=== PATIENT | female | born 1955 | race Caucasian/White ===

== ENCOUNTER → 2018-03-28 12:52 | Outpatient (CLI) | payer OTHER, SELFPAY ==
--- NOTE | 2018-03-28 | DI.RAD.S_ITS ---
PROCEDURE: FL SHOULDER INJECTION MR/CT LT INDICATIONS: incomplete rotator cuff tear lt shoulder TECHNIQUE: The indications, alternatives, benefits, risks, and complications of the procedure were explained to the patient. Written informed consent was obtained and placed in the chart. The shoulder was examined fluoroscopically and a site for needle placement chosen for entry into the glenohumeral joint from an anterior approach. The skin was prepped and draped in a sterile fashion, and 1% lidocaine infiltrated from skin down to joint capsule. A spinal needle was inserted into the glenohumeral joint, and a small amount of iodinated contrast media injected to confirm intra-articular placement of the needle tip. This was followed by approximately 12 mL dilute solution of a gadolinium containing MR contrast agent. The needle was removed and a dressing was applied. The patient was given postprocedural instructions and sent to the MR suite for MR imaging. FINDINGS: A single fluoroscopic spot image demonstrates intra-articular location of injected iodinated contrast. IMPRESSION: Successful fluoroscopically guided administration of dilute Gadolinium solution into the shoulder joint for MR arthrogram. Dictated by: Shan Kaufman M.D. on 03/28/2018 at 15:06 Approved by: Shan Kaufman M.D. on 03/28/2018 at 15:06
--- NOTE | 2018-03-28 | DI.MRI.S_ITS ---
PROCEDURE: MR SHOULDER LT W CON INDICATIONS: incomplete rotator cuff tear of left shoulder. TECHNIQUE: After the administration of 12 mL of dilute intra-articular Gadolinium contrast, oblique coronal T1 and T2 spin echo with fat saturation, oblique sagittal T1 spin echo with and without fat saturation, oblique sagittal T2 fast spin echo with fat saturation, axial T1 spin echo with fat saturation through the shoulder. COMPARISON: None. FINDINGS: Image quality: Excellent. Rotator cuff: Status post repair of the supraspinatus tendon. There is a roughly 4 mm diameter full thickness tear of the anterior supraspinatus tendon at the humeral insertion site extending to the musculotendinous junction. Low-grade partial-thickness articular surface tear within the mid supraspinatus tendon at the femoral insertion site extending to the muscle tendinous junction is present. 4 mm diameter moderate grade partial-thickness articular surface tear of the posterior supraspinatus tendon at the humeral insertion site extending to the muscular tendinous junction is present. Infraspinatus, subscapularis, and teres minor tendons are intact. No rotator cuff atrophy. Bones and bursae: No bone marrow contusions or fractures. Mild acromioclavicular joint degeneration. The acromion demonstrates conventional anatomy, without an os acromiale. Capsule and soft tissues: The labrum and glenohumeral ligaments appear intact. The long head of the biceps tendon demonstrates normal location and morphology. The rotator interval appears normal, without fibrosis. The coracohumeral ligament is of normal thickness. No intra-articular bodies. IMPRESSION: 1. Postsurgical sequelae. 2. Small full thickness tear of the anterior supraspinatus tendon. Partial-thickness tears of the remainder of the supraspinatus tendon. 3. Acromioclavicular joint osteoarthritis. Dictated by: Darren Stover M.D. on 03/28/2018 at 16:11 Approved by: Darren Stover M.D. on 03/28/2018 at 16:14
== END ==
PROVIDERS: Family Provider Family Medicine; PCP Family Medicine; Visit Provider Orthopaedic Surgery
DX: M75.112 Incomplete rotator cuff tear or rupture of left shoulder, not specified as traumatic (principal); M19.012 Primary osteoarthritis, left shoulder
CPT/HCPCS: 23350; 73222; 77002

== ENCOUNTER → 2018-05-15 09:17 | Outpatient (CLI) | payer OTHER, SELFPAY ==
--- NOTE | 2018-05-15 | DI.MG.S_ITS ---
BILATERAL DIGITAL SCREENING MAMMOGRAM 3D/2D WITH CAD: 05/15/2018 CLINICAL: Routine screening. Comparison is made to exams dated: 09/10/2015 mammogram, 06/26/2014 mammogram, and 07/21/2012 mammogram - [facility]. There are scattered fibroglandular elements in both breasts. Current study was also evaluated with a Computer Aided Detection (CAD) system. No significant masses, calcifications, or other findings are seen in either breast. There has been no significant interval change. IMPRESSION: NEGATIVE There is no mammographic evidence of malignancy. A 1 year screening mammogram is recommended. This exam was interpreted at Station ID: [id number]. NOTE: For mammograms, a report in lay terms will be sent to the patient. Approximately 15% of breast malignancies will not be visualized mammographically. In the management of a palpable breast mass, a negative mammogram must not discourage biopsy of a clinically suspicious lesion. Electronically Signed By: Jhoan hurtado/grisel:05/15/2018 10:06:51 letter sent: Normal Exam ACR BI-RADS Category 1: Negative [id number]
== END ==
PROVIDERS: Family Provider Family Medicine; PCP Family Medicine; Visit Provider Family Medicine
DX: Z12.31 Encounter for screening mammogram for malignant neoplasm of breast (principal)
CPT/HCPCS: 77063; 77067

== ENCOUNTER 2018-06-30 06:38 | Day surgery (SDC) | payer OTHER, SELFPAY ==
[2018-06-30] VITALS (8 sets, daily range): BP systolic 94–126; BP diastolic 50–77; PULSE 53–77; RESP 14–18; TEMP 36.1–37.7; O2SAT 95–100; BMI 29.8
--- NOTE | 2018-06-30 | PATH_ITS ---
[facility] Accession Number: [id number] . 01 Material submitted: . PART A: POLYP, TRANSVERSE COLON AT 40 PART B: POLYP, SIGMOID COLON AT 20 . 02 Diagnosis: A. Transverse Colon Polyp at 40 cm: Tubular adenoma. . B. Sigmoid Colon Polyp at 20 cm: Tubular adenoma. MRV/07/02/2018 . 02 Electronically signed: . Rogelio Devine MD, PhD, Pathologist NPI- [id number] . 01 Gross description: . Part A: POLYP, TRANSVERSE COLON AT 40: Received in formalin are 2 fragment(s) of wei, soft tissue measuring 0.4 x 0.3 x 0.3 cm to 0.3 x 0.2 x 0.2 cm submitted entirely in 1 cassette(s) Part B: POLYP, SIGMOID COLON AT 20: Received in formalin is 1 fragment(s) of wei, soft tissue measuring 0.3 x 0.3 x 0.2 cm submitted entirely in 1 cassette(s) /CKI /CKI . 02 Pathologist provided ICD-10: D12.3, D12.5 . 02 CPT . 057000, 873009 Performed at: 01 [facility] [address], [place], [place] [id number] MD Jhoan Swartz MD Phone: [phone] Performed at: 02 [facility] [address] [place], [place] [id number] MD Salo Hernandez MD Phone: [phone]
[2018-06-30] MEDS: SODIUM CHLORIDE 0.9% 1,000 ML 200 ML IV (07:25)
--- NOTE | 2018-06-30 08:06 | PM.HP.1 ---
History of Present Illness Date Patient Seen: 06/30/18 Time Patient Seen: 08:06 Chief complaint: colonoscopy 28837 Narrative: 63-year-old female with personal history of colon polyps who presents today for surveillance. She has no new gastrointestinal symptoms. Denies any abdominal pain, nausea, vomiting, unexpected weight loss, change in bowel habits, diarrhea, constipation, melena, hematochezia, or bright red blood per rectum. Her last colonoscopy was 5 years ago. Patient History Medical History Depression (Acute) History of colon polyps (Acute) Hyperlipidemia (Acute) Osteoarthritis (Acute) Psoriasis (Acute) Surgical History History of colonoscopy (Acute) Status post rotator cuff repair Family & Social History Family History: Reviewed 06/30/18 by Brody Raman MD Social History: household members spouse Meds Home Medications Medication Instructions Recorded Confirmed Type cholecalciferol (vitamin D3) #0 02/05/18 History glucosamine sulfate-msm 1 ea PO #0 02/05/18 History hydrocortisone valerate 1 cinthya TOPICAL DAILY #0 02/05/18 06/30/18 History multivitamin [Multiple Vitamins] 1 tab PO QDAY #0 02/05/18 History triamcinolone acetonide 1 cinthya TOPICAL BID #15 gm 02/05/18 Rx atorvastatin 40 mg tablet 40 mg PO Q DAY #30 tab 05/06/18 06/30/18 Rx escitalopram 10 mg tablet 10 mg PO QDAY #30 tab 05/06/18 06/30/18 Rx ibuprofen 800 mg tablet 800 mg PO Q8H PRN #90 tab 05/06/18 Rx Allergies Allergy/AdvReac Type Severity Reaction Status Date / Time Sulfa (Sulfonamide Allergy Mild BLISTERS Unverified 06/30/18 07:21 Antibiotics) [SULFA (SULFONAMIDE ANTIBIOTICS)] Review of Systems Review of Systems All systems reviewed & are unremarkable except as noted in HPI and below Exam Vital Signs (past 8 hours): - 06/30/18 07:15 06/30/18 07:18 Temperature 97.0 F L 97.0 F L Pulse Rate 77 77 Respiratory Rate 18 18 Blood Pressure 126/77 H 126/71 H Pulse Oximetry 96 96 Oxygen Delivery Method Room Air Oxygen Flow Rate 0 Narrative Exam Narrative: Well-nourished well-developed female in no acute distress. Alert oriented x3. is at the bedside for the entire visit. Sclera nonicteric Neck is supple Chest clear to auscultation bilaterally Regular rate and rhythm Abdomen soft, nondistended, nontender, no masses Extremities show no clubbing, cyanosis, or edema Objective Labs Labs: No recent radiographic or laboratory studies for review Assessment & Plan Plan: Assessment/Plan Narrative: 63-year-old female with personal history of colon polyps now requiring colorectal surveillance for such. Her last colonoscopy was 5 years ago. I have again recommended colonoscopy for surveillance purposes. Technical details of the procedure were discussed. Risks, benefits, alternatives were explained. Risks including but not limited to sedation, aspiration, bleeding, pain, missed lesion, incomplete examination, need for further radiographic studies, colonic perforation, need for major abdominal surgery, and all attendant risks of major surgery were explained at length. All questions were answered to her satisfaction, and she voiced understanding. Consent was placed on the chart. We will proceed as above.
--- NOTE | 2018-06-30 08:10 | PM.PREOP ---
Pre-operative Note Interval Note Pre-op Check: Yes History & Physical Reviewed by Physician, Yes Exam Performed and Yes History & Physical exam performed today by Physician Changes: No H&P completed within 30 days and has changed as indicated here:: Patient seen and examined today. History physical examination documented and placed on the chart. We will proceed with colonoscopy today as planned for colorectal surveillance given her personal history of colon polyps. ASA Class (for procedural sedation): II
[2018-06-30] MEDS: MIDAZOLAM 5 MG/5 ML VIAL IV (08:30)
[2018-06-30] MEDS: fentaNYL 250 MCG/5 ML INJ IV (08:31)
--- NOTE | 2018-06-30 08:41 | PM.OP.ENDO ---
Operative Date/Time/Diagnoses Date of procedure: 06/30/18 Time of procedure: 08:41 Pre-op diagnosis: Personal history of colon polyps Post-op diagnosis: other (Colon polyps and pandiverticulosis) Procedure & Clinicians Study performed: 1. Sedation per surgeon 2. Colonoscopy with cold forceps polypectomies Same procedure as scheduled: Yes Indications: 63-year-old female with personal history of colon polyps. It has been 5 years since her last endoscopy. Colonoscopy is currently recommended for surveillance purposes. Surgeon: Brody Raman Procedure Notes SCOAP/Timeout: Yes Procedure in detail: After obtaining informed consent, the patient was brought to the GI suite and placed in the left lateral decubitus position on the examination table. After placement of appropriate monitors, the patient was given incremental doses of Versed and Fentanyl until an appropriate level of sedation was achieved. A time out was held per SCOAP protocol. A digital rectal examination was performed and did not reveal any masses or obstructing lesions. The colonoscope was gently passed into the patient's anus and the entire colon navigated to the level of the cecum with minimal difficulty. Once in the cecum, the scope was withdrawn being sure to go before and beyond all mucosal folds and prominences and get an excellent examination. The findings are noted above. At the level of the rectal vault, the scope was retroflexed and the internal anal canal was examined. The scope was straightened and air aspirated from the colon. The instrument was removed from the patient's body and the procedure was concluded. The patient was allowed to awaken from sedation without difficulty and taken to the post-anesthesia care unit in good condition. Scope withdrawal time: 7:56 min Sedation minutes: 22 Findings: diverticulosis and polyp Specimen(s): other Complications: none Recommendations: Colonscopy in 5 years, High fiber diet and Will call with biopsy results Plan for aftercare: 1. Discharge to home 2. Follow-up colonoscopy in 5 years Follow up: as needed Disposition: PACU
--- NOTE | 2018-06-30 08:52 | SUR.PHASEI ---
stable pacu stay, soft belly tolerates fluids.
== END 2018-06-30 09:12 | disposition home or self-care (01) ==
PROVIDERS: Family Provider Family Medicine; PCP Family Medicine; Visit Provider Surgery
PROC: 0DJD8ZZ Inspection of Lower Intestinal Tract, Via Natural or Artificial Opening Endoscopic (ICD-10-PCS; CPT 45378; principal; 2018-06-30 07:45)
DX: Z86.010 Personal history of colon polyps (principal); K57.30 Diverticulosis of large intestine without perforation or abscess without bleeding
CPT/HCPCS: 45380; 99152; J2250; J3010

== ENCOUNTER 2018-07-01 09:00 | Outpatient (RCR) | payer OTHER, SELFPAY ==
--- NOTE | 2018-04-16 07:38 | PT.OIE ---
Current Diagnoses Pain in right hand (04/15/18) Past Surgical History Status post rotator cuff repair Provider Visit Care Team Role Provider Type Elisabeth Araujo MD Attending Provider Physician Family Provider Primary Care Provider Specialty: Family Practice Address: [address] [place] [address], [facility] Email: [email or web address] Physical Therapy Initial Evaluation PT-OP-A Visit Information Start: 04/15/18 15:59 Freq: Status: Active Protocol: Document 04/15/18 16:01 EA (Rec: 04/15/18 16:21 EA [id number]) Out-Patient Physical Therapy Visit Information Visit Information Visit Type Initial Evaluation Visit Start Time 12:15 Visit Stop Time 13:00 Total Visit Minutes 45 Visit Number 1 Evaluation Information Evaluation Date 04/15/18 PT-OP-B Current Condition Start: 04/15/18 15:59 Freq: Status: Active Protocol: Document 04/15/18 16:01 EA (Rec: 04/15/18 16:21 EA [id number]) Current Condition History of Current Condition Onset Date 6 months ago Current Complaints bilateral wrist and hands intermittent aching pain History of Current Condition Present condition started 6 months ago with no known injuries/ hand surgical history; states had trigger finger on left middle finger and thumb and got better after cortisone shots 6 months ago. Patient reports pain usually appears in the morning and decreased/diminished as day goes. 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 No X-rays or imaging taken in the past. Patient reports right shoulder replacement a year ago and shoulder still tight at this time; denies referred/ radiating pain from shoulder to hands Prior Treatments and Tests Right shoulder PT due to replacement 11/2016 Treatment Goals Patient/Caregiver Goals Patient wants to eliminate pain so she could do knitting. Prior Functional Status Baseline Function- ADL's Independent Baseline Function- Mobility Independent Current Functional Impairments (Reported) Functional Limitations- ADL's indep with no limitation except with hand activities that requires gripping and twisting. Functional Limitations- Recreation/ Unable to do usual knitting Hobbies due to pain. PT-OP-C Subjective Start: 04/15/18 15:59 Freq: Status: Active Protocol: Document 04/15/18 16:01 EA (Rec: 04/15/18 16:21 EA [id number]) OP-PT Subjective Patient Comments Patient Comments Present condition started 6 months ago with no known injuries/ hand surgical history; states had trigger finger on left middle finger and thumb and got better after cortisone shots 6 months ago. Patient reports pain usually appears in the morning and decreased/diminished as day goes. 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 No X-rays or imaging taken in the past. Patient reports right shoulder replacement a year ago and shoulder still tight at this time; denies referred/ radiating pain from shoulder to hands Patient Reported Progress Same Patient Questionnaires Quick Dash- Upper Extremity Quick Dash UE Impairment 40 to 59% Impaired (Score 40- 59) OP-PT Pain Assessment Location Bilateral Wrist Pain Location Details Volar wrist joint Intensity 5 Scale Used Numeric (1 - 10) Description Aching Frequency Intermittent Pain Aggravating Factors ADL's Pain Alleviating Factors Heat Medication Home Pain Medication Use Pain Medications Used Yes Home Pain Medication Frequency Ibuprofen PT-OP-E Functional Tests Start: 04/15/18 15:59 Freq: Status: Active Protocol: Document 04/15/18 16:52 EA (Rec: 04/15/18 17:28 EA [id number]) Functional Tests Other 1 Name of Test Hand Dynamometer Score Left =24; R 31 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 and age PT-OP-H Neuro Start: 04/15/18 15:59 Freq: Status: Active Protocol: Document 04/15/18 16:52 EA (Rec: 04/15/18 17:28 EA [id number]) Sensation Evaluation Gross Sensation Gross Sensation WNL Deep Tendon Reflex & Clonus Assessment Deep Tendon Reflex Bilateral Brachioradialis Deep Tendon Reflex 2+ Normal Muscle Tone Tone Assessment Upper Extremity Flexor Tone Description Normal PT-OP-J Posture/Palpation/Skin Start: 04/15/18 15:59 Freq: Status: Active Protocol: Document 04/15/18 16:52 EA (Rec: 04/15/18 17:28 EA [id number]) Posture Evaluation Position Sitting Head/C-Spine Posture Forward Head Palpation Assessment Location Two Palpation Location volar wrist joint Palpation Findings Tenderness One Palpation Location Hand extensors Palpation Findings Soft Tissue Tightness Tenderness Skin Assessment Edema Assessment Bilateral Hand Comments No skin discoloration or acute signs of inflammation PT-OP-K Range of Motion Start: 04/15/18 15:59 Freq: Status: Active Protocol: Document 04/15/18 16:52 EA (Rec: 04/15/18 17:28 EA [id number]) Shoulder Goniometric Range of Motion Shoulder Measured in Degrees Active Testing Position Sitting Flexion 90 Abduction 75 External Rotation at 0 degrees Abduction 35 Internal Rotation 45 Wrist Goniometric Range of Motion Wrist Measured in Degrees Right Flexion Active (degrees) 80 Extension Active (degrees) 70 Ulnar Deviation Active (degrees) 30 Radial Deviation Active (degrees) 40 Left Flexion Active (degrees) 70 Extension Active (degrees) 65 Ulnar Deviation Passive (degrees) 25 Radial Deviation Active (degrees) 30 ROM Limitations Wrist Limitations of Range of Motion Soft Tissue Tightness Thumb Goniometric Range of Motion Thumb Measured in Degrees Left Thumb ROM WFL Yes PT-OP-L Special Tests Start: 04/16/18 07:23 Freq: Status: Active Protocol: Document 04/15/18 14:52 EA (Rec: 04/16/18 07:26 EA [id number]) Special Tests Cervical Spine Special Tests Spurling's Test Test Results negative Foraminal Compression Test Results negative Other Special Tests Special Tests Phalens test-reversed phalens test: negative Finkelstien's test: Negative to both. PT-OP-M Strength Start: 04/15/18 15:59 Freq: Status: Active Protocol: Document 04/15/18 17:29 EA (Rec: 04/15/18 17:31 EA [id number]) Shoulder Strength Shoulder Manual Muscle Testing Left Flexion 4- Good- Extension 4+ Good+ Abduction (C5) 4- Good- Adduction 4+ Good+ External Rotation 4- Good- Internal Rotation 4- Good- Hand Junior Systems Administrator/Pinch Strength Hand Dominance Hand Dominance Right Hand Strength Right Junior Systems Administrator (lbs) 68.2 Left Junior Systems Administrator (lbs) 52.8 Wrist Strength Wrist Manual Muscle Testing Right Flexion (C7) 5 Normal Extension (C6) 5 Normal Ulnar Deviation 5 Normal Radial Deviation 5 Normal Left Flexion (C7) 4+ Good+ Extension (C6) 4+ Good+ Ulnar Deviation 4+ Good+ Radial Deviation 4+ Good+ PT-OP-Q Treatments Start: 04/15/18 15:59 Freq: Status: Active Protocol: Document 04/15/18 16:52 EA (Rec: 04/15/18 17:28 EA [id number]) Self-Care/Home Management Treatment Education Patient Education Home Exercise Program Joint Protection Pain Management PT-OP-R Modalities Start: 04/15/18 15:59 Freq: Status: Active Protocol: Document 04/15/18 16:52 EA (Rec: 04/15/18 17:28 EA [id number]) Paraffin Bath Treatment Right Hand Treatment Technique Glove Number Wax Layers (layers) 6 Duration (minutes) 15 Patient Tolerance Good Left Hand Treatment Technique Glove Number Wax Layers (layers) 6 Duration (minutes) 15 Patient Tolerance Good PT-OP-T Assessment and Plan Start: 04/15/18 15:59 Freq: Status: Active Protocol: Document 04/15/18 16:52 EA (Rec: 04/15/18 17:28 EA [id number]) Physical Therapy Assessment Rehab Potential Rehabilitation Potential Excellent Evaluation Complexity Number of Personal Factors/Comorbidities 1-2 Number of Body Systems Impaired 3 Clinical Presentation at Evaluation Stable Impairments Impairments Functional Activities Pain ROM Soft Tissue Mobility Goals Three Impairment Wrist Flexion 0-70; EXT 0- 65 deg Senior Living Goal (LTG) Patient will exhibit normal wrist flexion and extension ROM LTG Duration 4 wks Two Impairment Quick Dash score of 40 Manager Assembly Goal (LTG) Patient will have quickDash score of < 25 LTG Duration 4 wks One Impairment PS of 5/10 with activity Manager Assembly Goal (LTG) Patient will report pain w/ PS of 2 /10 with activity LTG Duration 4 wks Assessment Summary Assessment Patient exhibits signs and symptoms consistent with mild multiple hand joints osteoarthritis. Patient's condition history collaborate with patient's disease progression. No noted any signs of neurogenic involvement. Patient would benefit with skilled PT to focus in decreasing symptoms and maintaining/improving left hand strength. Physical Therapy Plan Frequency and Duration Frequency of Treatment 1x/Week Plan of Care Start Date 04/15/18 Plan of Care End Date 05/27/18 Therapeutic Interventions Therapeutic Interventions Home Exercise Program Joint Mobilizations Manual Therapy Patient/Caregiver Education Self-Care/Home Management Soft Tissue Mobilization Therapeutic Exercises Modalities Cold Pack/Ice Massage Electric Stimulation Hot Packs Paraffin Bath Ultrasound Next Visit Focus/Plan Next Note Type Treatment Note Next Visit Plan Paraffin, flexibility, STM, and HEP. Please Sign and Return: I have reviewed this Plan of Care and certify that the skilled therapy services above are required to meet the patient?s needs. Physician Signature Date Printed Name and Credentials Clinical Instructor Signature Printed Name and Credentials
--- NOTE | 2018-04-16 07:38 | PT.OPPOC ---
Current Diagnoses Pain in right hand (04/15/18) Provider Visit Care Team Role Provider Type Elisabeth Araujo MD Attending Provider Physician Family Provider Primary Care Provider Specialty: Family Practice Address: [address] [place] [address], [facility] Email: [email or web address] Plan Of Care PT-OP-T Assessment and Plan Start: 04/15/18 15:59 Freq: Status: Active Protocol: Document 04/15/18 16:52 EA (Rec: 04/15/18 17:28 EA [id number]) Physical Therapy Assessment Rehab Potential Rehabilitation Potential Excellent Evaluation Complexity Number of Personal Factors/Comorbidities 1-2 Number of Body Systems Impaired 3 Clinical Presentation at Evaluation Stable Impairments Impairments Functional Activities Pain ROM Soft Tissue Mobility Goals Three Impairment Wrist Flexion 0-70; EXT 0- 65 deg Fpc Goal (LTG) Patient will exhibit normal wrist flexion and extension ROM LTG Duration 4 wks Two Impairment Quick Dash score of 40 Fpc Goal (LTG) Patient will have quickDash score of < 25 LTG Duration 4 wks One Impairment PS of 5/10 with activity Fpc Goal (LTG) Patient will report pain w/ PS of 2 /10 with ac tivity LTG Duration 4 wks Assessment Summary Assessment Patient exhibits signs and symptoms consistent with mild multiple hand joints osteoarthritis. Patient's condition history collaborate with patient's disease progression. No noted any signs of neurogenic involvement. Patient would benefit with skilled PT to focus in decreasing symptoms and maintaining/improving left hand strength. Physical Therapy Plan Frequency and Duration Frequency of Treatment 1x/Week Plan of Care Start Date 04/15/18 Plan of Care End Date 05/27/18 Therapeutic Interventions Therapeutic Interventions Home Exercise Program Joint Mobilizations Manual Therapy Patient/Caregiver Education Self-Care/Home Management Soft Tissue Mobilization Therapeutic Exercises Modalities Cold Pack/Ice Massage Electric Stimulation Hot Packs Paraffin Bath Ultrasound Next Visit Focus/Plan Next Note Type Treatment Note Next Visit Plan Paraffin, flexibility, STM, and HEP. Plan of Care Dates Plan of Care Start Date 04/15/18 Plan of Care End Date 05/27/18 Please Sign and Return: I have reviewed this Plan of Care and certify that the skilled therapy services above are required to meet the patient?s needs. Physician Signature Date Printed Name and Credentials Clinical Instructor Signature Printed Name and Credentials
--- NOTE | 2018-04-17 07:27 | PT.OPPOC ---
Current Diagnoses Pain in right hand (04/15/18) Provider Visit Care Team Role Provider Type Elisabeth Araujo MD Attending Provider Physician Family Provider Primary Care Provider Specialty: Family Practice Address: [address] [place] [address], [facility] Email: [email or web address] Plan Of Care PT-OP-T Assessment and Plan Start: 04/15/18 15:59 Freq: Status: Active Protocol: Document 04/15/18 16:52 EA (Rec: 04/15/18 17:28 EA [id number]) Physical Therapy Assessment Rehab Potential Rehabilitation Potential Excellent Evaluation Complexity Number of Personal Factors/Comorbidities 1-2 Number of Body Systems Impaired 3 Clinical Presentation at Evaluation Stable Impairments Impairments Functional Activities Pain ROM Soft Tissue Mobility Goals Three Impairment Wrist Flexion 0-70; EXT 0- 65 deg Intermediate Goal (LTG) Patient will exhibit normal wrist flexion and extension ROM LTG Duration 4 wks Two Impairment Quick Dash score of 40 Intermediate Goal (LTG) Patient will have quickDash score of < 25 LTG Duration 4 wks One Impairment PS of 5/10 with activity Intermediate Goal (LTG) Patient will report pain w/ PS of 2 /10 with ac tivity LTG Duration 4 wks Assessment Summary Assessment Patient exhibits signs and symptoms consistent with mild multiple hand joints osteoarthritis. Patient's condition history coincide with patient's disease progression. No noted any signs of neurogenic involvement. Patient would benefit with skilled PT to focus in decreasing symptoms and maintaining/improving left hand strength. Physical Therapy Plan Frequency and Duration Frequency of Treatment 1x/Week Plan of Care Start Date 04/15/18 Plan of Care End Date 05/27/18 Therapeutic Interventions Therapeutic Interventions Home Exercise Program Joint Mobilizations Manual Therapy Patient/Caregiver Education Self-Care/Home Management Soft Tissue Mobilization Therapeutic Exercises Modalities Cold Pack/Ice Massage Electric Stimulation Hot Packs Paraffin Bath Ultrasound Next Visit Focus/Plan Next Note Type Treatment Note Next Visit Plan Paraffin, flexibility, STM, and HEP. Plan of Care Dates Plan of Care Start Date 04/15/18 Plan of Care End Date 05/27/18 Please Sign and Return: I have reviewed this Plan of Care and certify that the skilled therapy services above are required to meet the patient?s needs. Physician Signature Date Printed Name and Credentials Clinical Instructor Signature Printed Name and Credentials
--- NOTE | 2018-04-23 12:53 | PT.OTN ---
Current Diagnoses Pain in right hand (04/23/18) Physical Therapy Treatment Note PT-OP-A Visit Information Start: 04/15/18 15:59 Freq: Status: Active Protocol: Document 04/23/18 12:01 [facility] (Rec: 04/23/18 12:52 [facility] [id number]) Out-Patient Physical Therapy Visit Information Visit Information Visit Type Treatment Note Visit Note 12/14 Gcode Visit Start Time 12:00 Visit Stop Time 13:50 Total Visit Minutes 50 Visit Number 2 PT-OP-B Current Condition Start: 04/15/18 15:59 Freq: Status: Active Protocol: Document 04/15/18 16:01 EA (Rec: 04/15/18 16:21 EA [id number]) Current Condition History of Current Condition Onset Date 6 months ago Current Complaints bilateral wrist and hands intermittent aching pain History of Current Condition Present condition started 6 months ago with no known injuries/ hand surgical history; states had trigger finger on left middle finger and thumb and got better after cortisone shots 6 months ago. Patient reports pain usually appears in the morning and decreased/diminished as day goes. 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 No X-rays or imaging taken in the past. Patient reports right shoulder replacement a year ago and shoulder still tight at this time; denies referred/ radiating pain from shoulder to hands Prior Treatments and Tests Right shoulder PT due to replacement 11/2016 Treatment Goals Patient/Caregiver Goals Patient wants to eliminate pain so she could do knitting. Prior Functional Status Baseline Function- ADL's Independent Baseline Function- Mobility Independent Current Functional Impairments (Reported) Functional Limitations- ADL's indep with no limitation except with hand activities that requires gripping and twisting. Functional Limitations- Recreation/ Unable to do usual knitting Hobbies due to pain. PT-OP-C Subjective Start: 04/15/18 15:59 Freq: Status: Active Protocol: Document 04/23/18 12:01 [facility] (Rec: 04/23/18 12:52 [facility] [id number]) OP-PT Subjective Patient Comments Patient Comments Pt reports L wrist is really sore today. 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 based on gender and age PT-OP-H Neuro Start: 04/15/18 15:59 Freq: Status: Active Protocol: Document 04/15/18 16:52 EA (Rec: 04/15/18 17:28 EA [id number]) Sensation Evaluation Gross Sensation Gross Sensation WNL Deep Tendon Reflex & Clonus Assessment Deep Tendon Reflex Bilateral Brachioradialis Deep Tendon Reflex 2+ Normal Muscle Tone Tone Assessment Upper Extremity Flexor Tone Description Normal PT-OP-J Posture/Palpation/Skin Start: 04/15/18 15:59 Freq: Status: Active Protocol: Document 04/15/18 16:52 EA (Rec: 04/15/18 17:28 EA [id number]) Posture Evaluation Position Sitting Head/C-Spine Posture Forward Head Palpation Assessment Location Two Palpation Location volar wrist joint Palpation Findings Tenderness One Palpation Location Hand extensors Palpation Findings Soft Tissue Tightness Tenderness Skin Assessment Edema Assessment Bilateral Hand Comments No skin discoloration or acute signs of inflammation PT-OP-K Range of Motion Start: 04/15/18 15:59 Freq: Status: Active Protocol: Document 04/15/18 16:52 EA (Rec: 04/15/18 17:28 EA [id number]) Shoulder Goniometric Range of Motion Shoulder Measured in Degrees Active Testing Position Sitting Flexion 90 Abduction 75 External Rotation at 0 degrees Abduction 35 Internal Rotation 45 Wrist Goniometric Range of Motion Wrist Measured in Degrees Right Flexion Active (degrees) 80 Extension Active (degrees) 70 Ulnar Deviation Active (degrees) 30 Radial Deviation Active (degrees) 40 Left Flexion Active (degrees) 70 Extension Active (degrees) 65 Ulnar Deviation Passive (degrees) 25 Radial Deviation Active (degrees) 30 ROM Limitations Wrist Limitations of Range of Motion Soft Tissue Tightness Thumb Goniometric Range of Motion Thumb Measured in Degrees Left Thumb ROM WFL Yes PT-OP-L Special Tests Start: 04/16/18 07:23 Freq: Status: Active Protocol: Document 04/15/18 14:52 EA (Rec: 04/16/18 07:26 EA [id number]) Special Tests Cervical Spine Special Tests Spurling's Test Test Results negative Foraminal Compression Test Results negative Other Special Tests Special Tests Phalens test-reversed phalens test: negative Finkelstien's test: Negative to both. PT-OP-M Strength Start: 04/15/18 15:59 Freq: Status: Active Protocol: Document 04/15/18 17:29 EA (Rec: 04/15/18 17:31 EA [id number]) Shoulder Strength Shoulder Manual Muscle Testing Left Flexion 4- Good- Extension 4+ Good+ Abduction (C5) 4- Good- Adduction 4+ Good+ External Rotation 4- Good- Internal Rotation 4- Good- Hand Forensic Document Examiner/Pinch Strength Hand Dominance Hand Dominance Right Hand Strength Right Forensic Document Examiner (lbs) 68.2 Left Forensic Document Examiner (lbs) 52.8 Wrist Strength Wrist Manual Muscle Testing Right Flexion (C7) 5 Normal Extension (C6) 5 Normal Ulnar Deviation 5 Normal Radial Deviation 5 Normal Left Flexion (C7) 4+ Good+ Extension (C6) 4+ Good+ Ulnar Deviation 4+ Good+ Radial Deviation 4+ Good+ PT-OP-Q Treatments Start: 04/15/18 15:59 Freq: Status: Active Protocol: Document 04/23/18 12:01 [facility] (Rec: 04/23/18 12:52 [facility] [id number]) Therapeutic Exercises Sitting Exercises 3 Sitting Exercise Name abd & ext fingers Resistance rubber band Reps/Minutes 8 2 Sitting Exercise Name wrist extensor stretch Reps/Minutes 30 sec hold 1 Sitting Exercise Name tendon gliding Reps/Minutes 5 Manual Therapy Treatment Soft Tissue Mobilization 2 Body Location wrist flexors Mobilization Type Rolling Intensity/Depth Moderate 1 Body Location wrist extensors Mobilization Type Rolling Intensity/Depth Moderate Joint Mobilizations 2 Joint carpal Direction PA FM 1 Joint radioulnar Direction PA Grade II PT-OP-R Modalities Start: 04/15/18 15:59 Freq: Status: Active Protocol: Document 04/23/18 12:01 [facility] (Rec: 04/23/18 12:53 [facility] [id number]) Paraffin Bath Treatment Right Hand Treatment Technique Glove Number Wax Layers (layers) 6 Duration (minutes) 15 Patient Tolerance Good Left Hand Treatment Technique Glove Number Wax Layers (layers) 6 Duration (minutes) 15 Patient Tolerance Good PT-OP-T Assessment and Plan Start: 04/15/18 15:59 Freq: Status: Active Protocol: Document 04/23/18 12:01 [facility] (Rec: 04/23/18 12:52 [facility] [id number]) Physical Therapy Assessment Goals Three Impairment Wrist Flexion 0-70; EXT 0- 65 deg Centrifuge Operator Goal (LTG) Patient will exhibit normal wrist flexion and extension ROM LTG Duration 4 wks Two Impairment Quick Dash score of 40 Skilled Nursing Goal (LTG) Patient will have quickDash score of < 25 LTG Duration 4 wks One Impairment PS of 5/10 with activity Skilled Nursing Goal (LTG) Patient will report pain w/ PS of 2 /10 with ac tivity LTG Duration 4 wks Assessment Summary Assessment Pt reports significant relief with manual therapy & paraffin . Inc ext ROM
--- NOTE | 2018-04-29 10:58 | PT.OTN ---
Current Diagnoses Pain in right hand (04/29/18) Physical Therapy Treatment Note PT-OP-A Visit Information Start: 04/15/18 15:59 Freq: Status: Active Protocol: Document 04/29/18 09:45 AMB (Rec: 04/29/18 10:55 AMB [email or web address]) Out-Patient Physical Therapy Visit Information Visit Information Visit Type Treatment Note Visit Note 01/11 Gcode Visit Start Time 09:45 Visit Stop Time 10:35 Total Visit Minutes 50 Visit Number 3 Evaluation Information Evaluation Date 04/15/18 PT-OP-B Current Condition Start: 04/15/18 15:59 Freq: Status: Active Protocol: Document 04/15/18 16:01 EA (Rec: 04/15/18 16:21 EA [id number]) Current Condition History of Current Condition Onset Date 6 months ago Current Complaints bilateral wrist and hands intermittent aching pain History of Current Condition Present condition started 6 months ago with no known injuries/ hand surgical history; states had trigger finger on left middle finger and thumb and got better after cortisone shots 6 months ago. Patient reports pain usually appears in the morning and decreased/diminished as day goes. 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 No X-rays or imaging taken in the past. Patient reports right shoulder replacement a year ago and shoulder still tight at this time; denies referred/ radiating pain from shoulder to hands Prior Treatments and Tests Right shoulder PT due to replacement 11/2016 Treatment Goals Patient/Caregiver Goals Patient wants to eliminate pain so she could do knitting. Prior Functional Status Baseline Function- ADL's Independent Baseline Function- Mobility Independent Current Functional Impairments (Reported) Functional Limitations- ADL's indep with no limitation except with hand activities that requires gripping and twisting. Functional Limitations- Recreation/ Unable to do usual knitting Hobbies due to pain. PT-OP-C Subjective Start: 04/15/18 15:59 Freq: Status: Active Protocol: Document 04/29/18 09:45 AMB (Rec: 04/29/18 10:55 AMB [email or web address]) OP-PT Subjective Patient Comments Patient Comments L wrist was possibly getting better, until yesterday when it became quite sore and swollen, no increase in activity. 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 biostatistician strength based on gender and age PT-OP-H Neuro Start: 04/15/18 15:59 Freq: Status: Active Protocol: Document 04/15/18 16:52 EA (Rec: 04/15/18 17:28 EA [id number]) Sensation Evaluation Gross Sensation Gross Sensation WNL Deep Tendon Reflex & Clonus Assessment Deep Tendon Reflex Bilateral Brachioradialis Deep Tendon Reflex 2+ Normal Muscle Tone Tone Assessment Upper Extremity Flexor Tone Description Normal PT-OP-J Posture/Palpation/Skin Start: 04/15/18 15:59 Freq: Status: Active Protocol: Document 04/15/18 16:52 EA (Rec: 04/15/18 17:28 EA [id number]) Posture Evaluation Position Sitting Head/C-Spine Posture Forward Head Palpation Assessment Location Two Palpation Location volar wrist joint Palpation Findings Tenderness One Palpation Location Hand extensors Palpation Findings Soft Tissue Tightness Tenderness Skin Assessment Edema Assessment Bilateral Hand Comments No skin discoloration or acute signs of inflammation PT-OP-K Range of Motion Start: 04/15/18 15:59 Freq: Status: Active Protocol: Document 04/15/18 16:52 EA (Rec: 04/15/18 17:28 EA [id number]) Shoulder Goniometric Range of Motion Shoulder Measured in Degrees Active Testing Position Sitting Flexion 90 Abduction 75 External Rotation at 0 degrees Abduction 35 Internal Rotation 45 Wrist Goniometric Range of Motion Wrist Measured in Degrees Right Flexion Active (degrees) 80 Extension Active (degrees) 70 Ulnar Deviation Active (degrees) 30 Radial Deviation Active (degrees) 40 Left Flexion Active (degrees) 70 Extension Active (degrees) 65 Ulnar Deviation Passive (degrees) 25 Radial Deviation Active (degrees) 30 ROM Limitations Wrist Limitations of Range of Motion Soft Tissue Tightness Thumb Goniometric Range of Motion Thumb Measured in Degrees Left Thumb ROM WFL Yes PT-OP-L Special Tests Start: 04/16/18 07:23 Freq: Status: Active Protocol: Document 04/15/18 14:52 EA (Rec: 04/16/18 07:26 EA [id number]) Special Tests Cervical Spine Special Tests Spurling's Test Test Results negative Foraminal Compression Test Results negative Other Special Tests Special Tests Phalens test-reversed phalens test: negative Finkelstien's test: Negative to both. PT-OP-M Strength Start: 04/15/18 15:59 Freq: Status: Active Protocol: Document 04/15/18 17:29 EA (Rec: 04/15/18 17:31 EA [id number]) Shoulder Strength Shoulder Manual Muscle Testing Left Flexion 4- Good- Extension 4+ Good+ Abduction (C5) 4- Good- Adduction 4+ Good+ External Rotation 4- Good- Internal Rotation 4- Good- Hand Cro/Pinch Strength Hand Dominance Hand Dominance Right Hand Strength Right Cro (lbs) 68.2 Left Cro (lbs) 52.8 Wrist Strength Wrist Manual Muscle Testing Right Flexion (C7) 5 Normal Extension (C6) 5 Normal Ulnar Deviation 5 Normal Radial Deviation 5 Normal Left Flexion (C7) 4+ Good+ Extension (C6) 4+ Good+ Ulnar Deviation 4+ Good+ Radial Deviation 4+ Good+ PT-OP-Q Treatments Start: 04/15/18 15:59 Freq: Status: Active Protocol: Document 04/29/18 09:45 AMB (Rec: 04/29/18 10:55 AMB [email or web address]) Therapeutic Exercises Sitting Exercises 5 Sitting Exercise Name forearm sup/pron Resistance 2# Reps/Minutes 2x12 4 Sitting Exercise Name wrist extension Resistance 2# Comments 2x12 2 Sitting Exercise Name wrist extensor stretch Reps/Minutes 30 sec hold 1 Sitting Exercise Name tendon gliding Reps/Minutes 5 Manual Therapy Treatment Soft Tissue Mobilization 2 Body Location wrist flexors Mobilization Type Rolling Intensity/Depth Moderate 1 Body Location wrist extensors Mobilization Type Rolling Intensity/Depth Moderate Joint Mobilizations 2 Joint carpal Direction PA FM PT-OP-R Modalities Start: 04/15/18 15:59 Freq: Status: Active Protocol: Document 04/29/18 09:45 AMB (Rec: 04/29/18 10:55 AMB [email or web address]) Paraffin Bath Treatment Right Hand Treatment Technique Dip-immersion Number Wax Layers (layers) 6 Duration (minutes) 15 Left Hand Treatment Technique Dip-immersion Number Wax Layers (layers) 6 Duration (minutes) 15 PT-OP-T Assessment and Plan Start: 04/15/18 15:59 Freq: Status: Active Protocol: Document 04/29/18 09:45 AMB (Rec: 04/29/18 10:55 AMB [email or web address]) Physical Therapy Assessment Assessment Summary Assessment Increased swelling L>R today. Physical Therapy Plan Frequency and Duration Frequency of Treatment 1x/Week Plan of Care Start Date 04/15/18 Plan of Care End Date 05/27/18 Next Visit Focus/Plan Next Note Type Treatment Note Next Visit Plan If tolerated weights, can add to HEP.
--- NOTE | 2018-06-03 13:27 | PT.OTN ---
Current Diagnoses Pain in right hand (06/03/18) Physical Therapy Treatment Note PT-OP-A Visit Information Start: 04/15/18 15:59 Freq: Status: Active Protocol: Document 06/03/18 09:00 AMB (Rec: 06/04/18 13:19 AMB [email or web address]) Out-Patient Physical Therapy Visit Information Visit Information Visit Type Progress Note Visit Start Time 09:00 Visit Stop Time 09:45 Total Visit Minutes 45 Visit Number 4 Evaluation Information Evaluation Date 04/15/18 PT-OP-B Current Condition Start: 04/15/18 15:59 Freq: Status: Active Protocol: Document 04/15/18 16:01 EA (Rec: 04/15/18 16:21 EA [id number]) Current Condition History of Current Condition Onset Date 6 months ago Current Complaints bilateral wrist and hands intermittent aching pain History of Current Condition Present condition started 6 months ago with no known injuries/ hand surgical history; states had trigger finger on left middle finger and thumb and got better after cortisone shots 6 months ago. Patient reports pain usually appears in the morning and decreased/diminished as day goes. 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 No X-rays or imaging taken in the past. Patient reports right shoulder replacement a year ago and shoulder still tight at this time; denies referred/ radiating pain from shoulder to hands Prior Treatments and Tests Right shoulder PT due to replacement 11/2016 Treatment Goals Patient/Caregiver Goals Patient wants to eliminate pain so she could do knitting. Prior Functional Status Baseline Function- ADL's Independent Baseline Function- Mobility Independent Current Functional Impairments (Reported) Functional Limitations- ADL's indep with no limitation except with hand activities that requires gripping and twisting. Functional Limitations- Recreation/ Unable to do usual knitting Hobbies due to pain. PT-OP-C Subjective Start: 04/15/18 15:59 Freq: Status: Active Protocol: Document 06/03/18 09:00 AMB (Rec: 06/04/18 13:19 AMB [email or web address]) OP-PT Subjective Patient Comments Patient Comments L wrist continues to be sore at dorsal aspect. Pause in therapy due to insurance authorization. PT-OP-E Functional Tests Start: 04/15/18 15:59 Freq: Status: Active Protocol: Document 04/15/18 16:52 EA (Rec: 04/15/18 17:28 EA [id number]) Functional Tests Other 1 Name of Test Hand Dynamometer Score Left =24; R 31 Comment Normal hand assistant department manager strength based on gender and age PT-OP-H Neuro Start: 04/15/18 15:59 Freq: Status: Active Protocol: Document 04/15/18 16:52 EA (Rec: 04/15/18 17:28 EA [id number]) Sensation Evaluation Gross Sensation Gross Sensation WNL Deep Tendon Reflex & Clonus Assessment Deep Tendon Reflex Bilateral Brachioradialis Deep Tendon Reflex 2+ Normal Muscle Tone Tone Assessment Upper Extremity Flexor Tone Description Normal PT-OP-J Posture/Palpation/Skin Start: 04/15/18 15:59 Freq: Status: Active Protocol: Document 04/15/18 16:52 EA (Rec: 04/15/18 17:28 EA [id number]) Posture Evaluation Position Sitting Head/C-Spine Posture Forward Head Palpation Assessment Location Two Palpation Location volar wrist joint Palpation Findings Tenderness One Palpation Location Hand extensors Palpation Findings Soft Tissue Tightness Tenderness Skin Assessment Edema Assessment Bilateral Hand Comments No skin discoloration or acute signs of inflammation PT-OP-K Range of Motion Start: 04/15/18 15:59 Freq: Status: Active Protocol: Document 06/03/18 09:00 AMB (Rec: 06/03/18 09:53 AMB [id number]) Wrist Goniometric Range of Motion Wrist Measured in Degrees Left Flexion Active (degrees) 70 Extension Active (degrees) 65 ROM Limitations Comments Pain starts at 45 degrees extension PT-OP-L Special Tests Start: 04/16/18 07:23 Freq: Status: Active Protocol: Document 04/15/18 14:52 EA (Rec: 04/16/18 07:26 EA [id number]) Special Tests Cervical Spine Special Tests Spurling's Test Test Results negative Foraminal Compression Test Results negative Other Special Tests Special Tests Phalens test-reversed phalens test: negative Finkelstien's test: Negative to both. PT-OP-M Strength Start: 04/15/18 15:59 Freq: Status: Active Protocol: Document 04/15/18 17:29 EA (Rec: 04/15/18 17:31 EA [id number]) Shoulder Strength Shoulder Manual Muscle Testing Left Flexion 4- Good- Extension 4+ Good+ Abduction (C5) 4- Good- Adduction 4+ Good+ External Rotation 4- Good- Internal Rotation 4- Good- Hand Light Adjuster/Pinch Strength Hand Dominance Hand Dominance Right Hand Strength Right Light Adjuster (lbs) 68.2 Left Light Adjuster (lbs) 52.8 Wrist Strength Wrist Manual Muscle Testing Right Flexion (C7) 5 Normal Extension (C6) 5 Normal Ulnar Deviation 5 Normal Radial Deviation 5 Normal Left Flexion (C7) 4+ Good+ Extension (C6) 4+ Good+ Ulnar Deviation 4+ Good+ Radial Deviation 4+ Good+ PT-OP-Q Treatments Start: 04/15/18 15:59 Freq: Status: Active Protocol: Document 06/03/18 09:00 AMB (Rec: 06/03/18 09:49 AMB [id number]) Therapeutic Exercises Sitting Exercises 2 Sitting Exercise Name wrist extensor stretch Reps/Minutes 30 sec hold 1 Sitting Exercise Name tendon gliding Reps/Minutes 5 Standing Exercises 1 Standing Exercise Name weightbearing on fists Reps/Minutes 30x2 Comments on plinth Manual Therapy Treatment Soft Tissue Mobilization 1 Body Location wrist extensors Mobilization Type Rolling Intensity/Depth Moderate Taping 1 Body Location L wrist extensors Type of Tape Kinesio Tape PT-OP-R Modalities Start: 04/15/18 15:59 Freq: Status: Active Protocol: Document 06/03/18 09:00 AMB (Rec: 06/03/18 09:49 AMB [id number]) Ultrasound Therapy Treatment Left Wrist Treatment Duration (minutes) 7 Patient Position Sitting Coupling Medium Ultrasound Gel Frequency Setting (mHz) 1 Mode Setting Continuous Intensity Setting (w/cm2) 1.3 PT-OP-T Assessment and Plan Start: 04/15/18 15:59 Freq: Status: Active Protocol: Document 06/03/18 09:00 AMB (Rec: 06/04/18 13:19 AMB [id number]) Physical Therapy Assessment Goals Four Impairment Functional activity Short Term Goal (STG) The patient will knit for 1 hour without an increase in baseline wrist pain. STG Duration 4 weeks Print Finishing Worker Goal (LTG) The patient will cook for 30 minutes (chopping, holding pots) wihtout an increase in wrist pain. Three Impairment Wrist Flexion 0-70; EXT 0- 65 deg Shelter Goal (LTG) Patient will exhibit normal wrist flexion and extension ROM- LTG Duration 4 wks Two Impairment Quick Dash score of 40 Print Finishing Worker Goal (LTG) Patient will have quickDash score of < 25 LTG Duration 4 wks One Impairment PS of 5/10 with activity Shelter Goal (LTG) Patient will report pain w/ PS of 2 /10 with activity LTG Duration 4 wks Assessment Summary Assessment The patient has only been seen for 4 visits due to insurance authorization. In that time her right wrist is better, but her left wrist continues to be painful. She has stopped knitting because of the pain. Today we reassessed her HEP so that she will not have pain with it. She is going on a vacation soon, so that will also disrupt PT. Physical Therapy Plan Frequency and Duration Frequency of Treatment 1x/Week Duration of Treatment 6 weeks Plan of Care Start Date 06/03/18 Plan of Care End Date 07/15/18 Therapeutic Interventions Therapeutic Interventions Home Exercise Program Joint Mobilizations Manual Therapy Neuromuscular Re-education Self-Care/Home Management Soft Tissue Mobilization Taping Therapeutic Activities Therapeutic Exercises Modalities Cold Pack/Ice Massage Electric Stimulation Hot Packs Paraffin Bath Ultrasound Next Visit Focus/Plan Next Note Type Treatment Note Next Visit Plan Reassess kinesiotape, tolerance to new HEP
--- NOTE | 2018-06-04 13:26 | PT.OPPOC ---
Current Diagnoses Pain in right hand (06/03/18) Provider Visit Care Team Role Provider Type Elisabeth Araujo MD Attending Provider Physician Family Provider Primary Care Provider Specialty: Family Practice Address: [address] [place] [address], [facility] Email: [email or web address] Plan Of Care PT-OP-T Assessment and Plan Start: 04/15/18 15:59 Freq: Status: Active Protocol: Document 06/03/18 09:00 AMB (Rec: 06/04/18 13:19 AMB [email or web address]) Physical Therapy Assessment Goals Four Impairment Functional activity Short Term Goal (STG) The patient will knit for 1 hour without an increase in baseline wrist pain. STG Duration 4 weeks Corporate Manager Goal (LTG) The patient will cook for 30 minutes (chopping, holding pots) wihtout an increase in wrist pain. Three Impairment Wrist Flexion 0-70; EXT 0- 65 deg Corporate Manager Goal (LTG) Patient will exhibit normal wrist flexion and extension ROM- LTG Duration 4 wks Two Impairment Quick Dash score of 40 Shelter Goal (LTG) Patient will have quickDash score of < 25 LTG Duration 4 wks One Impairment PS of 5/10 with activity Shelter Goal (LTG) Patient will report pain w/ PS of 2 /10 with activity LTG Duration 4 wks Assessment Summary Assessment The patient has only been seen for 4 visits due to insurance authorization. In that time her right wrist is better, but her left wrist continues to be painful. She has stopped knitting because of the pain. Today we reassessed her HEP so that she will not have pain with it. She is going on a vacation soon, so that will also disrupt PT. Physical Therapy Plan Frequency and Duration Frequency of Treatment 1x/Week Duration of Treatment 6 weeks Plan of Care Start Date 06/03/18 Plan of Care End Date 07/15/18 Therapeutic Interventions Therapeutic Interventions Home Exercise Program Joint Mobilizations Manual Therapy Neuromuscular Re-education Self-Care/Home Management Soft Tissue Mobilization Taping Therapeutic Activities Therapeutic Exercises Modalities Cold Pack/Ice Massage Electric Stimulation Hot Packs Paraffin Bath Ultrasound Next Visit Focus/Plan Next Note Type Treatment Note Next Visit Plan Reassess kinesiotape, tolerance to new HEP Plan of Care Dates Plan of Care Start Date 06/03/18 Plan of Care End Date 07/15/18 Please Sign and Return: I have reviewed this Plan of Care and certify that the skilled therapy services above are required to meet the patient?s needs. Physician Signature Date Printed Name and Credentials Clinical Instructor Signature Printed Name and Credentials
--- NOTE | 2018-06-06 13:35 | PT.OTN ---
Current Diagnoses Pain in right hand (06/06/18) Physical Therapy Treatment Note PT-OP-A Visit Information Start: 04/15/18 15:59 Freq: Status: Active Protocol: Document 06/06/18 11:25 AMB (Rec: 06/06/18 11:26 AMB [id number]) Out-Patient Physical Therapy Visit Information Visit Information Visit Type Treatment Note Visit Number 5 PT-OP-B Current Condition Start: 04/15/18 15:59 Freq: Status: Active Protocol: Document 04/15/18 16:01 EA (Rec: 04/15/18 16:21 EA [id number]) Current Condition History of Current Condition Onset Date 6 months ago Current Complaints bilateral wrist and hands intermittent aching pain History of Current Condition Present condition started 6 months ago with no known injuries/ hand surgical history; states had trigger finger on left middle finger and thumb and got better after cortisone shots 6 months ago. Patient reports pain usually appears in the morning and decreased/diminished as day goes. 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 No X-rays or imaging taken in the past. Patient reports right shoulder replacement a year ago and shoulder still tight at this time; denies referred/ radiating pain from shoulder to hands Prior Treatments and Tests Right shoulder PT due to replacement 11/2016 Treatment Goals Patient/Caregiver Goals Patient wants to eliminate pain so she could do knitting. Prior Functional Status Baseline Function- ADL's Independent Baseline Function- Mobility Independent Current Functional Impairments (Reported) Functional Limitations- ADL's indep with no limitation except with hand activities that requires gripping and twisting. Functional Limitations- Recreation/ Unable to do usual knitting Hobbies due to pain. PT-OP-C Subjective Start: 04/15/18 15:59 Freq: Status: Active Protocol: Document 06/06/18 11:15 AMB (Rec: 06/06/18 13:33 AMB [email or web address]) OP-PT Subjective Patient Comments Patient Comments The patient is feeling a bit better, she felt the tape was helfpul. 3/10 pain, worse with wrist extension. 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 based on gender and age PT-OP-H Neuro Start: 04/15/18 15:59 Freq: Status: Active Protocol: Document 04/15/18 16:52 EA (Rec: 04/15/18 17:28 EA [id number]) Sensation Evaluation Gross Sensation Gross Sensation WNL Deep Tendon Reflex & Clonus Assessment Deep Tendon Reflex Bilateral Brachioradialis Deep Tendon Reflex 2+ Normal Muscle Tone Tone Assessment Upper Extremity Flexor Tone Description Normal PT-OP-J Posture/Palpation/Skin Start: 04/15/18 15:59 Freq: Status: Active Protocol: Document 04/15/18 16:52 EA (Rec: 04/15/18 17:28 EA [id number]) Posture Evaluation Position Sitting Head/C-Spine Posture Forward Head Palpation Assessment Location Two Palpation Location volar wrist joint Palpation Findings Tenderness One Palpation Location Hand extensors Palpation Findings Soft Tissue Tightness Tenderness Skin Assessment Edema Assessment Bilateral Hand Comments No skin discoloration or acute signs of inflammation PT-OP-K Range of Motion Start: 04/15/18 15:59 Freq: Status: Active Protocol: Document 06/03/18 09:00 AMB (Rec: 06/03/18 09:53 AMB [id number]) Wrist Goniometric Range of Motion Wrist Measured in Degrees Left Flexion Active (degrees) 70 Extension Active (degrees) 65 ROM Limitations Comments Pain starts at 45 degrees extension PT-OP-L Special Tests Start: 04/16/18 07:23 Freq: Status: Active Protocol: Document 04/15/18 14:52 EA (Rec: 04/16/18 07:26 EA [id number]) Special Tests Cervical Spine Special Tests Spurling's Test Test Results negative Foraminal Compression Test Results negative Other Special Tests Special Tests Phalens test-reversed phalens test: negative Finkelstien's test: Negative to both. PT-OP-M Strength Start: 04/15/18 15:59 Freq: Status: Active Protocol: Document 04/15/18 17:29 EA (Rec: 04/15/18 17:31 EA [id number]) Shoulder Strength Shoulder Manual Muscle Testing Left Flexion 4- Good- Extension 4+ Good+ Abduction (C5) 4- Good- Adduction 4+ Good+ External Rotation 4- Good- Internal Rotation 4- Good- Hand Tower Hand/Pinch Strength Hand Dominance Hand Dominance Right Hand Strength Right Tower Hand (lbs) 68.2 Left Tower Hand (lbs) 52.8 Wrist Strength Wrist Manual Muscle Testing Right Flexion (C7) 5 Normal Extension (C6) 5 Normal Ulnar Deviation 5 Normal Radial Deviation 5 Normal Left Flexion (C7) 4+ Good+ Extension (C6) 4+ Good+ Ulnar Deviation 4+ Good+ Radial Deviation 4+ Good+ PT-OP-Q Treatments Start: 04/15/18 15:59 Freq: Status: Active Protocol: Document 06/06/18 11:15 AMB (Rec: 06/06/18 13:33 AMB [email or web address]) Cardio Equipment Upper Body Ergometer (UBE) Duration (Minutes) 5 RPM 60 Other fwd backward Therapeutic Exercises Sitting Exercises 2 Sitting Exercise Name wrist extensor stretch Reps/Minutes 30 sec hold 1 Sitting Exercise Name tendon gliding Reps/Minutes 5 Standing Exercises 1 Standing Exercise Name weightbearing on fists Reps/Minutes 30x2 Comments on plinth Manual Therapy Treatment Soft Tissue Mobilization 1 Body Location wrist extensors Mobilization Type Rolling Intensity/Depth Moderate Joint Mobilizations 2 Joint carpal Direction PA FM 1 Joint radioulnar Direction PA Grade II Taping 1 Body Location L wrist extensors Type of Tape Kinesio Tape PT-OP-R Modalities Start: 04/15/18 15:59 Freq: Status: Active Protocol: Document 06/06/18 11:15 AMB (Rec: 06/06/18 13:33 AMB [email or web address]) Ultrasound Therapy Treatment Left Wrist Treatment Duration (minutes) 7 Patient Position Sitting Coupling Medium Ultrasound Gel Frequency Setting (mHz) 1 Mode Setting Continuous Intensity Setting (w/cm2) 1.3 PT-OP-T Assessment and Plan Start: 04/15/18 15:59 Freq: Status: Active Protocol: Document 06/06/18 11:15 AMB (Rec: 06/06/18 13:33 AMB [email or web address]) Physical Therapy Assessment Assessment Summary Assessment Pt seems to be improving ( pain at end range wrist extension) but not in mid range. Physical Therapy Plan Next Visit Focus/Plan Next Note Type Treatment Note Next Visit Plan Progress HEP
--- NOTE | 2018-06-13 13:05 | PT.OTN ---
Current Diagnoses Pain in right hand (06/13/18) Physical Therapy Treatment Note PT-OP-A Visit Information Start: 04/15/18 15:59 Freq: Status: Active Protocol: Document 06/13/18 11:15 AMB (Rec: 06/13/18 12:58 AMB [email or web address]) Out-Patient Physical Therapy Visit Information Visit Information Visit Type Treatment Note Visit Number 6 Evaluation Information Evaluation Date 04/15/18 PT-OP-B Current Condition Start: 04/15/18 15:59 Freq: Status: Active Protocol: Document 04/15/18 16:01 EA (Rec: 04/15/18 16:21 EA [id number]) Current Condition History of Current Condition Onset Date 6 months ago Current Complaints bilateral wrist and hands intermittent aching pain History of Current Condition Present condition started 6 months ago with no known injuries/ hand surgical history; states had trigger finger on left middle finger and thumb and got better after cortisone shots 6 months ago. Patient reports pain usually appears in the morning and decreased/diminished as day goes. 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 No X-rays or imaging taken in the past. Patient reports right shoulder replacement a year ago and shoulder still tight at this time; denies referred/ radiating pain from shoulder to hands Prior Treatments and Tests Right shoulder PT due to replacement 11/2016 Treatment Goals Patient/Caregiver Goals Patient wants to eliminate pain so she could do knitting. Prior Functional Status Baseline Function- ADL's Independent Baseline Function- Mobility Independent Current Functional Impairments (Reported) Functional Limitations- ADL's indep with no limitation except with hand activities that requires gripping and twisting. Functional Limitations- Recreation/ Unable to do usual knitting Hobbies due to pain. PT-OP-C Subjective Start: 04/15/18 15:59 Freq: Status: Active Protocol: Document 06/13/18 11:15 AMB (Rec: 06/13/18 12:58 AMB [email or web address]) OP-PT Subjective Patient Comments Patient Comments The patient now states she is feeling a bit worse. The tape does help. PT-OP-E Functional Tests Start: 04/15/18 15:59 Freq: Status: Active Protocol: Document 04/15/18 16:52 EA (Rec: 04/15/18 17:28 EA [id number]) Functional Tests Other 1 Name of Test Hand Dynamometer Score Left =24; R 31 Comment Normal hand mechatronics engineer strength based on gender and age PT-OP-H Neuro Start: 04/15/18 15:59 Freq: Status: Active Protocol: Document 04/15/18 16:52 EA (Rec: 04/15/18 17:28 EA [id number]) Sensation Evaluation Gross Sensation Gross Sensation WNL Deep Tendon Reflex & Clonus Assessment Deep Tendon Reflex Bilateral Brachioradialis Deep Tendon Reflex 2+ Normal Muscle Tone Tone Assessment Upper Extremity Flexor Tone Description Normal PT-OP-J Posture/Palpation/Skin Start: 04/15/18 15:59 Freq: Status: Active Protocol: Document 04/15/18 16:52 EA (Rec: 04/15/18 17:28 EA [id number]) Posture Evaluation Position Sitting Head/C-Spine Posture Forward Head Palpation Assessment Location Two Palpation Location volar wrist joint Palpation Findings Tenderness One Palpation Location Hand extensors Palpation Findings Soft Tissue Tightness Tenderness Skin Assessment Edema Assessment Bilateral Hand Comments No skin discoloration or acute signs of inflammation PT-OP-K Range of Motion Start: 04/15/18 15:59 Freq: Status: Active Protocol: Document 06/03/18 09:00 AMB (Rec: 06/03/18 09:53 AMB [id number]) Wrist Goniometric Range of Motion Wrist Measured in Degrees Left Flexion Active (degrees) 70 Extension Active (degrees) 65 ROM Limitations Comments Pain starts at 45 degrees extension PT-OP-L Special Tests Start: 04/16/18 07:23 Freq: Status: Active Protocol: Document 04/15/18 14:52 EA (Rec: 04/16/18 07:26 EA [id number]) Special Tests Cervical Spine Special Tests Spurling's Test Test Results negative Foraminal Compression Test Results negative Other Special Tests Special Tests Phalens test-reversed phalens test: negative Finkelstien's test: Negative to both. PT-OP-M Strength Start: 04/15/18 15:59 Freq: Status: Active Protocol: Document 04/15/18 17:29 EA (Rec: 04/15/18 17:31 EA [id number]) Shoulder Strength Shoulder Manual Muscle Testing Left Flexion 4- Good- Extension 4+ Good+ Abduction (C5) 4- Good- Adduction 4+ Good+ External Rotation 4- Good- Internal Rotation 4- Good- Hand Product Marketing Specialist/Pinch Strength Hand Dominance Hand Dominance Right Hand Strength Right Product Marketing Specialist (lbs) 68.2 Left Product Marketing Specialist (lbs) 52.8 Wrist Strength Wrist Manual Muscle Testing Right Flexion (C7) 5 Normal Extension (C6) 5 Normal Ulnar Deviation 5 Normal Radial Deviation 5 Normal Left Flexion (C7) 4+ Good+ Extension (C6) 4+ Good+ Ulnar Deviation 4+ Good+ Radial Deviation 4+ Good+ PT-OP-Q Treatments Start: 04/15/18 15:59 Freq: Status: Active Protocol: Document 06/13/18 11:15 AMB (Rec: 06/13/18 12:58 AMB [email or web address]) Therapeutic Exercises Sitting Exercises 2 Sitting Exercise Name wrist extensor stretch Reps/Minutes 30 sec hold Standing Exercises 1 Standing Exercise Name weightbearing on fists Reps/Minutes 30x2 Comments on plinth Therapeutic Activity Therapeutic Activity 1 Name wrist neutral ADLs Comments Instruction to avoid wrist extension with lifting/cooking activities Manual Therapy Treatment Soft Tissue Mobilization 1 Body Location wrist extensors Mobilization Type Rolling Intensity/Depth Moderate Joint Mobilizations 2 Joint carpal Direction PA FM PT-OP-R Modalities Start: 04/15/18 15:59 Freq: Status: Active Protocol: Document 06/13/18 11:15 AMB (Rec: 06/13/18 12:58 AMB [email or web address]) Electric Stimulation Electric Stimulation Interferential Current (IFC) Body Location L wrist Duration (Minutes) 10 Ultrasound Therapy Treatment Left Wrist Treatment Duration (minutes) 7 Patient Position Sitting Coupling Medium Ultrasound Gel Frequency Setting (mHz) 1 Mode Setting Continuous Intensity Setting (w/cm2) 1.3 PT-OP-T Assessment and Plan Start: 04/15/18 15:59 Freq: Status: Active Protocol: Document 06/13/18 11:15 AMB (Rec: 06/13/18 12:58 AMB [email or web address]) Physical Therapy Assessment Assessment Summary Assessment Really worked to keep pt's wrist in neutral. Pt feels that sleeping posture (wrist extended under head) may be exacerbating pain. Physical Therapy Plan Frequency and Duration Frequency of Treatment 1x/Week Duration of Treatment 6 weeks Plan of Care Start Date 06/03/18 Plan of Care End Date 07/15/18 Next Visit Focus/Plan Next Note Type Treatment Note Next Visit Plan Follow up after trip,
--- NOTE | 2018-06-27 14:59 | PT.OTN ---
Current Diagnoses Pain in right hand (06/27/18) Physical Therapy Treatment Note PT-OP-A Visit Information Start: 04/15/18 15:59 Freq: Status: Active Protocol: Document 06/27/18 11:15 AMB (Rec: 06/27/18 11:17 AMB [id number]) Out-Patient Physical Therapy Visit Information Visit Information Visit Type Treatment Note Visit Start Time 11:15 Visit Stop Time 12:00 Visit Number 7 Evaluation Information Evaluation Date 04/15/18 PT-OP-B Current Condition Start: 04/15/18 15:59 Freq: Status: Active Protocol: Document 04/15/18 16:01 EA (Rec: 04/15/18 16:21 EA [id number]) Current Condition History of Current Condition Onset Date 6 months ago Current Complaints bilateral wrist and hands intermittent aching pain History of Current Condition Present condition started 6 months ago with no known injuries/ hand surgical history; states had trigger finger on left middle finger and thumb and got better after cortisone shots 6 months ago. Patient reports pain usually appears in the morning and decreased/diminished as day goes. 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 No X-rays or imaging taken in the past. Patient reports right shoulder replacement a year ago and shoulder still tight at this time; denies referred/ radiating pain from shoulder to hands Prior Treatments and Tests Right shoulder PT due to replacement 11/2016 Treatment Goals Patient/Caregiver Goals Patient wants to eliminate pain so she could do knitting. Prior Functional Status Baseline Function- ADL's Independent Baseline Function- Mobility Independent Current Functional Impairments (Reported) Functional Limitations- ADL's indep with no limitation except with hand activities that requires gripping and twisting. Functional Limitations- Recreation/ Unable to do usual knitting Hobbies due to pain. PT-OP-C Subjective Start: 04/15/18 15:59 Freq: Status: Active Protocol: Document 06/27/18 11:15 AMB (Rec: 06/27/18 12:59 AMB [email or web address]) OP-PT Subjective Patient Comments Patient Comments Pt returns from her trip to [place]. She feels the wrist is about the same. She brings her knitting with her to go over how to get back to it without irritating her wrist. 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 broker strength based on gender and age PT-OP-H Neuro Start: 04/15/18 15:59 Freq: Status: Active Protocol: Document 04/15/18 16:52 EA (Rec: 04/15/18 17:28 EA [id number]) Sensation Evaluation Gross Sensation Gross Sensation WNL Deep Tendon Reflex & Clonus Assessment Deep Tendon Reflex Bilateral Brachioradialis Deep Tendon Reflex 2+ Normal Muscle Tone Tone Assessment Upper Extremity Flexor Tone Description Normal PT-OP-J Posture/Palpation/Skin Start: 04/15/18 15:59 Freq: Status: Active Protocol: Document 04/15/18 16:52 EA (Rec: 04/15/18 17:28 EA [id number]) Posture Evaluation Position Sitting Head/C-Spine Posture Forward Head Palpation Assessment Location Two Palpation Location volar wrist joint Palpation Findings Tenderness One Palpation Location Hand extensors Palpation Findings Soft Tissue Tightness Tenderness Skin Assessment Edema Assessment Bilateral Hand Comments No skin discoloration or acute signs of inflammation PT-OP-K Range of Motion Start: 04/15/18 15:59 Freq: Status: Active Protocol: Document 06/03/18 09:00 AMB (Rec: 06/03/18 09:53 AMB [id number]) Wrist Goniometric Range of Motion Wrist Measured in Degrees Left Flexion Active (degrees) 70 Extension Active (degrees) 65 ROM Limitations Comments Pain starts at 45 degrees extension PT-OP-L Special Tests Start: 04/16/18 07:23 Freq: Status: Active Protocol: Document 04/15/18 14:52 EA (Rec: 04/16/18 07:26 EA [id number]) Special Tests Cervical Spine Special Tests Spurling's Test Test Results negative Foraminal Compression Test Results negative Other Special Tests Special Tests Phalens test-reversed phalens test: negative Finkelstien's test: Negative to both. PT-OP-M Strength Start: 04/15/18 15:59 Freq: Status: Active Protocol: Document 06/12/18 17:29 EA (Rec: 04/15/18 17:31 EA [id number]) Shoulder Strength Shoulder Manual Muscle Testing Left Flexion 4- Good- Extension 4+ Good+ Abduction (C5) 4- Good- Adduction 4+ Good+ External Rotation 4- Good- Internal Rotation 4- Good- Hand Active Directory Specialist/Pinch Strength Hand Dominance Hand Dominance Right Hand Strength Right Active Directory Specialist (lbs) 68.2 Left Active Directory Specialist (lbs) 52.8 Wrist Strength Wrist Manual Muscle Testing Right Flexion (C7) 5 Normal Extension (C6) 5 Normal Ulnar Deviation 5 Normal Radial Deviation 5 Normal Left Flexion (C7) 4+ Good+ Extension (C6) 4+ Good+ Ulnar Deviation 4+ Good+ Radial Deviation 4+ Good+ PT-OP-Q Treatments Start: 04/15/18 15:59 Freq: Status: Active Protocol: Document 06/27/18 11:15 AMB (Rec: 06/27/18 12:59 AMB [email or web address]) Therapeutic Exercises Sitting Exercises 2 Sitting Exercise Name wrist extensor stretch Reps/Minutes 30 sec hold Standing Exercises 3 Standing Exercise Name T band rows Resistance 3# Reps/Minutes 2x10 Comments vc for neutral wrist 2 Standing Exercise Name T band shoulder ER Resistance #3 Reps/Minutes 2x10 Comments vc for avoiding wrist extension Therapeutic Activity Therapeutic Activity 1 Name knitting Comments pt tends to extend her wrist with radial deviation and even though it is a small ROM, she was unable to change that motor plan and instructed to hold off on knitting for now Manual Therapy Treatment Soft Tissue Mobilization 1 Body Location wrist extensors Mobilization Type Rolling Intensity/Depth Moderate Joint Mobilizations 2 Joint carpal Direction PA FM PT-OP-R Modalities Start: 04/15/18 15:59 Freq: Status: Active Protocol: Document 06/13/18 11:15 AMB (Rec: 06/13/18 12:58 AMB [email or web address]) Electric Stimulation Electric Stimulation Interferential Current (IFC) Body Location L wrist Duration (Minutes) 10 Ultrasound Therapy Treatment Left Wrist Treatment Duration (minutes) 7 Patient Position Sitting Coupling Medium Ultrasound Gel Frequency Setting (mHz) 1 Mode Setting Continuous Intensity Setting (w/cm2) 1.3 PT-OP-T Assessment and Plan Start: 04/15/18 15:59 Freq: Status: Active Protocol: Document 06/27/18 11:15 AMB (Rec: 06/27/18 12:59 AMB [email or web address]) Physical Therapy Assessment Assessment Summary Assessment Pt tends to extend her wrist without realizing during ADLs. Encouraged to avoid repetitive wrist extension to allow wrist to heal. Physical Therapy Plan Next Visit Focus/Plan Next Note Type Treatment Note Next Visit Plan Progress HEP as tolerated
--- NOTE | 2018-07-01 16:26 | PT.OTN ---
Current Diagnoses Pain in right hand (07/01/18) Physical Therapy Treatment Note PT-OP-A Visit Information Start: 04/15/18 15:59 Freq: Status: Active Protocol: Document 07/01/18 09:00 AMB (Rec: 07/01/18 16:25 AMB [email or web address]) Out-Patient Physical Therapy Visit Information Visit Information Visit Type Treatment Note Visit Start Time 11:15 Visit Stop Time 12:00 Visit Number 8 Evaluation Information Evaluation Date 04/15/18 PT-OP-B Current Condition Start: 04/15/18 15:59 Freq: Status: Active Protocol: Document 04/15/18 16:01 EA (Rec: 04/15/18 16:21 EA [id number]) Current Condition History of Current Condition Onset Date 6 months ago Current Complaints bilateral wrist and hands intermittent aching pain History of Current Condition Present condition started 6 months ago with no known injuries/ hand surgical history; states had trigger finger on left middle finger and thumb and got better after cortisone shots 6 months ago. Patient reports pain usually appears in the morning and decreased/diminished as day goes. 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 No X-rays or imaging taken in the past. Patient reports right shoulder replacement a year ago and shoulder still tight at this time; denies referred/ radiating pain from shoulder to hands Prior Treatments and Tests Right shoulder PT due to replacement 11/2016 Treatment Goals Patient/Caregiver Goals Patient wants to eliminate pain so she could do knitting. Prior Functional Status Baseline Function- ADL's Independent Baseline Function- Mobility Independent Current Functional Impairments (Reported) Functional Limitations- ADL's indep with no limitation except with hand activities that requires gripping and twisting. Functional Limitations- Recreation/ Unable to do usual knitting Hobbies due to pain. PT-OP-C Subjective Start: 04/15/18 15:59 Freq: Status: Active Protocol: Document 07/01/18 09:00 AMB (Rec: 07/01/18 16:25 AMB [email or web address]) OP-PT Subjective Patient Comments Patient Comments Pt seeing her PCP at the end of Jul, wants to wait until after that to continue with PT . 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 based on gender and age PT-OP-H Neuro Start: 04/15/18 15:59 Freq: Status: Active Protocol: Document 04/15/18 16:52 EA (Rec: 04/15/18 17:28 EA [id number]) Sensation Evaluation Gross Sensation Gross Sensation WNL Deep Tendon Reflex & Clonus Assessment Deep Tendon Reflex Bilateral Brachioradialis Deep Tendon Reflex 2+ Normal Muscle Tone Tone Assessment Upper Extremity Flexor Tone Description Normal PT-OP-J Posture/Palpation/Skin Start: 04/15/18 15:59 Freq: Status: Active Protocol: Document 04/15/18 16:52 EA (Rec: 04/15/18 17:28 EA [id number]) Posture Evaluation Position Sitting Head/C-Spine Posture Forward Head Palpation Assessment Location Two Palpation Location volar wrist joint Palpation Findings Tenderness One Palpation Location Hand extensors Palpation Findings Soft Tissue Tightness Tenderness Skin Assessment Edema Assessment Bilateral Hand Comments No skin discoloration or acute signs of inflammation PT-OP-K Range of Motion Start: 04/15/18 15:59 Freq: Status: Active Protocol: Document 06/03/18 09:00 AMB (Rec: 06/03/18 09:53 AMB [id number]) Wrist Goniometric Range of Motion Wrist Measured in Degrees Left Flexion Active (degrees) 70 Extension Active (degrees) 65 ROM Limitations Comments Pain starts at 45 degrees extension PT-OP-L Special Tests Start: 04/16/18 07:23 Freq: Status: Active Protocol: Document 04/15/18 14:52 EA (Rec: 04/16/18 07:26 EA [id number]) Special Tests Cervical Spine Special Tests Spurling's Test Test Results negative Foraminal Compression Test Results negative Other Special Tests Special Tests Phalens test-reversed phalens test: negative Finkelstien's test: Negative to both. PT-OP-M Strength Start: 04/15/18 15:59 Freq: Status: Active Protocol: Document 04/15/18 17:29 EA (Rec: 04/15/18 17:31 EA [id number]) Shoulder Strength Shoulder Manual Muscle Testing Left Flexion 4- Good- Extension 4+ Good+ Abduction (C5) 4- Good- Adduction 4+ Good+ External Rotation 4- Good- Internal Rotation 4- Good- Hand Director Of Trauma/Pinch Strength Hand Dominance Hand Dominance Right Hand Strength Right Director Of Trauma (lbs) 68.2 Left Director Of Trauma (lbs) 52.8 Wrist Strength Wrist Manual Muscle Testing Right Flexion (C7) 5 Normal Extension (C6) 5 Normal Ulnar Deviation 5 Normal Radial Deviation 5 Normal Left Flexion (C7) 4+ Good+ Extension (C6) 4+ Good+ Ulnar Deviation 4+ Good+ Radial Deviation 4+ Good+ PT-OP-Q Treatments Start: 04/15/18 15:59 Freq: Status: Active Protocol: Document 07/01/18 09:00 AMB (Rec: 07/01/18 16:25 AMB [email or web address]) Manual Therapy Treatment Soft Tissue Mobilization 1 Body Location wrist extensors Mobilization Type Rolling Intensity/Depth Moderate Joint Mobilizations 2 Joint carpal Direction PA FM PT-OP-R Modalities Start: 04/15/18 15:59 Freq: Status: Active Protocol: Document 07/01/18 09:00 AMB (Rec: 07/01/18 16:25 AMB [email or web address]) Ultrasound Therapy Treatment Left Wrist Treatment Duration (minutes) 7 Patient Position Sitting Coupling Medium Ultrasound Gel Frequency Setting (mHz) 1 Mode Setting Continuous Intensity Setting (w/cm2) 1.3 PT-OP-T Assessment and Plan Start: 04/15/18 15:59 Freq: Status: Active Protocol: Document 07/01/18 09:00 AMB (Rec: 07/01/18 16:25 AMB [email or web address]) Physical Therapy Assessment Assessment Summary Assessment Pt feels wrist was feeling better after resting a lot yesterday, was able to extend wrist passively after manual therapy. Physical Therapy Plan Next Visit Focus/Plan Next Note Type Treatment Note Next Visit Plan Continue PT after pt see's PCP as needed
--- NOTE | 2018-10-01 10:59 | PT.OPDS ---
Current Diagnoses Pain in right hand (07/01/18) Provider Visit Care Team Role Provider Type Elisabeth Araujo MD Attending Provider Physician Family Provider Primary Care Provider Specialty: Family Practice Address: [address] [place] [address], [facility] Email: [email or web address] Visit Number Visit Number 8 Discharge Summary PT-OP-B Current Condition Start: 04/15/18 15:59 Freq: Status: Active Protocol: Document 04/15/18 16:01 EA (Rec: 04/15/18 16:21 EA [id number]) Current Condition History of Current Condition Onset Date 6 months ago Current Complaints bilateral wrist and hands intermittent aching pain History of Current Condition Present condition started 6 months ago with no known injuries/ hand surgical history; states had trigger finger on left middle finger and thumb and got better after cortisone shots 6 months ago. Patient reports pain usually appears in the morning and decreased/diminished as day goes. 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 No X-rays or imaging taken in the past. Patient reports right shoulder replacement a year ago and shoulder still tight at this time; denies referred/ radiating pain from shoulder to hands Prior Treatments and Tests Right shoulder PT due to replacement 11/2016 Treatment Goals Patient/Caregiver Goals Patient wants to eliminate pain so she could do knitting. Prior Functional Status Baseline Function- ADL's Independent Baseline Function- Mobility Independent Current Functional Impairments (Reported) Functional Limitations- ADL's indep with no limitation except with hand activities that requires gripping and twisting. Functional Limitations- Recreation/ Unable to do usual knitting Hobbies due to pain. PT-OP-C Subjective Start: 04/15/18 15:59 Freq: Status: Active Protocol: Document 07/01/18 09:00 AMB (Rec: 07/01/18 16:25 AMB [email or web address]) OP-PT Subjective Patient Comments Patient Comments Pt seeing her PCP at the end of Jul, wants to wait until after that to continue with PT . PT-OP-E Functional Tests Start: 04/15/18 15:59 Freq: Status: Active Protocol: Document 04/15/18 16:52 EA (Rec: 04/15/18 17:28 EA [id number]) Functional Tests Other 1 Name of Test Hand Dynamometer Score Left =24; R 31 Comment Normal hand material liaison strength based on gender and age PT-OP-H Neuro Start: 04/15/18 15:59 Freq: Status: Active Protocol: Document 04/15/18 16:52 EA (Rec: 04/15/18 17:28 EA [id number]) Sensation Evaluation Gross Sensation Gross Sensation WNL Deep Tendon Reflex & Clonus Assessment Deep Tendon Reflex Bilateral Brachioradialis Deep Tendon Reflex 2+ Normal Muscle Tone Tone Assessment Upper Extremity Flexor Tone Description Normal PT-OP-J Posture/Palpation/Skin Start: 04/15/18 15:59 Freq: Status: Active Protocol: Document 04/15/18 16:52 EA (Rec: 04/15/18 17:28 EA [id number]) Posture Evaluation Position Sitting Head/C-Spine Posture Forward Head Palpation Assessment Location Two Palpation Location volar wrist joint Palpation Findings Tenderness One Palpation Location Hand extensors Palpation Findings Soft Tissue Tightness Tenderness Skin Assessment Edema Assessment Bilateral Hand Comments No skin discoloration or acute signs of inflammation PT-OP-K Range of Motion Start: 04/15/18 15:59 Freq: Status: Active Protocol: Document 06/03/18 09:00 AMB (Rec: 06/03/18 09:53 AMB [id number]) Wrist Goniometric Range of Motion Wrist Measured in Degrees Left Flexion Active (degrees) 70 Extension Active (degrees) 65 ROM Limitations Comments Pain starts at 45 degrees extension PT-OP-L Special Tests Start: 04/16/18 07:23 Freq: Status: Active Protocol: Document 04/15/18 14:52 EA (Rec: 04/16/18 07:26 EA [id number]) Special Tests Cervical Spine Special Tests Spurling's Test Test Results negative Foraminal Compression Test Results negative Other Special Tests Special Tests Phalens test-reversed phalens test: negative Finkelstien's test: Negative to both. PT-OP-M Strength Start: 04/15/18 15:59 Freq: Status: Active Protocol: Document 04/15/18 17:29 EA (Rec: 04/15/18 17:31 EA [id number]) Shoulder Strength Shoulder Manual Muscle Testing Left Flexion 4- Good- Extension 4+ Good+ Abduction (C5) 4- Good- Adduction 4+ Good+ External Rotation 4- Good- Internal Rotation 4- Good- Hand Bench Chemist/Pinch Strength Hand Dominance Hand Dominance Right Hand Strength Right Bench Chemist (lbs) 68.2 Left Bench Chemist (lbs) 52.8 Wrist Strength Wrist Manual Muscle Testing Right Flexion (C7) 5 Normal Extension (C6) 5 Normal Ulnar Deviation 5 Normal Radial Deviation 5 Normal Left Flexion (C7) 4+ Good+ Extension (C6) 4+ Good+ Ulnar Deviation 4+ Good+ Radial Deviation 4+ Good+ PT-OP-T Assessment and Plan Start: 04/15/18 15:59 Freq: Status: Active Protocol: Document 10/01/18 10:57 AMB (Rec: 10/01/18 10:59 [facility] [id number]) Physical Therapy Assessment Assessment Summary Assessment The patient was seen for 7 visits of PT, last seen in June. She is following up with her PCP and orthopedist regarding her wrist pain, which did not especially improve with PT. She would need a new referral to return to PT since it has been 3 months since she has been seen . Physical Therapy Plan Discharge Physical Therapy Discharge Reasons No Longer Attending PT
== END 2018-10-20 16:38 ==
LOC: PHYS 09:00
PROVIDERS: Family Provider Family Medicine; PCP Family Medicine; Visit Provider Family Medicine
DX: M79.641 Pain in right hand (principal)
CPT/HCPCS: 97014; 97018; 97035; 97110; 97140; 97161; G0283

== ENCOUNTER → 2018-07-15 09:27 | Outpatient (CLI) | payer OTHER, SELFPAY ==
--- NOTE | 2018-07-15 09:29 | DI.RAD.S_ITS ---
PROCEDURE: XR WRIST LT MIN 3V INDICATIONS: left wrist pain TECHNIQUE: 3 views of the wrist were acquired. COMPARISON: None. FINDINGS: Bones: No fractures or dislocations. No suspicious bony lesions. Scaphoid view: Not obtained. Soft tissues: No suspicious soft tissue calcifications. IMPRESSION: No visualized acute fracture or dislocation. However, if clinical concern and/or pain persist, short interval imaging followup in 7-10 days is recommended, as occult injury cannot be definitively excluded. Dictated by: Bela Fox M.D. on 07/15/2018 at 9:54 Approved by: Bela Fox M.D. on 07/15/2018 at 9:55
[2018-07-15 10:04] LABS: Add Manual Diff / Slide Review NO; Basophils Percent Auto 0.1 % (0-2); Eosinophils Percent Auto 1.3 % (2-4); Hematocrit 39.1 % (36-46); Hemoglobin 13.6 g/dL (12.0-16.0); Lymphocytes Percent Auto 22.8 % (25-40); Mean Corpuscular HGB Conc 34.7 % (30-36); Mean Corpuscular Hemoglobin 32.2 PG (26-34); Mean Corpuscular Volume 92.9 fL (80-100); Monocytes Percent Auto 3.9 % (3-14); Neutrophils Absolute Auto 4300 /uL (3000-5900); Neutrophils Percent Auto 71.9 % (50-75); Platelet Count 207 X10^3/uL (150-400); Red Blood Cell Count 4.21 X10^6/uL (4.0-5.2); Red Cell Distribution Width 12.5 % (11.6-14.8)
[2018-07-15 10:22] LABS: BUN Creatinine Ratio 25.7 (6-22); Blood Urea Nitrogen 18 mg/dL (7-17); Calcium 9.3 mg/dL (8.4-10.2); Carbon Dioxide 27 mmol/L (22-32); Chloride 108 mmol/L (98-107); Cholesterol 148 mg/dL (140-199); Estimated Glomerular Filt Rate > 60.0 mL/min (>60); Glucose 111 mg/dL (80-110); HDL Cholesterol 41 mg/dL (40-60); HEMOLYSIS < 15 (0-50); LDL Cholesterol Calculated 78 mg/dL (<100); Potassium 4.3 mmol/L (3.4-5.1); Sodium 145 mmol/L (137-145); Triglycerides 143 mg/dL (35-150)
[2018-07-15 10:25] LABS: C-Reactive Protein Quant < 0.5 mg/dL (<1.0); Erythrocyte Sedimentation Rate 8 MM/HR (0-20); Rheumatoid Factor < 8.6 IU/mL (<12.0)
[2018-07-15 10:57] LABS: Thyroid Stimulating Hormone 5.19 uIU/mL (0.47-4.68)
== END ==
PROVIDERS: PCP Family Medicine; Visit Provider Family Medicine
DX: Z13.220 Encounter for screening for lipoid disorders (principal); M25.532 Pain in left wrist; M79.642 Pain in left hand; R42 Dizziness and giddiness; M79.641 Pain in right hand
CPT/HCPCS: 36415; 73110; 80048; 80061; 84443; 85025; 85651; 86140; 86430

== ENCOUNTER → 2018-07-29 09:27 | Outpatient (CLI) | payer OTHER, SELFPAY ==
[2018-07-29 10:23] LABS: Hemoglobin A1C% w Est Avg Glu 5.7 % (4.0-6.0)
== END ==
PROVIDERS: PCP Family Medicine; Visit Provider Family Medicine
DX: R73.9 Hyperglycemia, unspecified (principal)
CPT/HCPCS: 36415; 83036

== ENCOUNTER → 2018-08-27 17:05 | Outpatient (CLI) | payer OTHER, SELFPAY ==
--- NOTE | 2018-08-27 17:09 | DI.MRI.S_ITS ---
PROCEDURE: MR WRIST LT WO CON INDICATIONS: OTHER ENTHESOPATHIES, NOT ELSEWHERE CLASSIFIED TECHNIQUE: Noncontrast coronal proton density fast spin echo and T2 fast spin echo with fat saturation; coronal 3-D gradient echo, axial T1 spin echo and T2 fast spin echo with fat saturation, sagittal T1 spin echo through the wrist. COMPARISON: [facility] [place], [place], XR WRIST 3+ VIEWS RIGHT, 08/19/2018, 10:28. FINDINGS: Image quality: Excellent. Bones and cartilage: The carpal bones are normally aligned. Chronic appearing ossicle adjacent to the ulnar styloid. No bone marrow contusions or fractures. No evidence for avascular necrosis. Overlying cartilage surfaces appear normal. Carpal ligaments: The scapholunate and lunotriquetral ligaments appear intact. In the absence of intra-articular contrast, the extrinsic carpal ligaments are not well identified. On sagittal images, the pisohamate ligament appears intact. Triangular fibrocartilage complex: The triangular fibrocartilage appears intact. The adjacent meniscal homolog appears normal in the absence of intra-articular contrast. The extensor carpi ulnaris tendon is normal in location and morphology. Tendons and soft tissues: The carpal tunnel structures appear normal, including the median nerve. The ulnar nerve appears normal within Guyon's canal. There is extensor digitorum tenosynovitis. There is also extensor carpi radialis longus tenosynovitis. IMPRESSION: Extensor digitorum and extensor carpi radialis longus tenosynovitis. Dictated by: Juan M Landry M.D. on 08/28/2018 at 10:03 Approved by: Juan M Landry M.D. on 08/28/2018 at 10:10
== END ==
PROVIDERS: Family Provider Family Medicine; PCP Family Medicine; Visit Provider Orthopaedic Surgery
DX: M65.832 Other synovitis and tenosynovitis, left forearm (principal)
CPT/HCPCS: 73221

== ENCOUNTER → 2018-10-21 09:48 | Outpatient (CLI) | payer OTHER, SELFPAY ==
[2018-10-21 11:53] LABS: Free T3, Triiodothyronine Free 3.64 pg/mL (2.77-5.27); Free T4, Direct Thyroxine 0.97 ng/dL (0.78-2.19)
[2018-10-21 12:06] LABS: Thyroid Stimulating Hormone 3.69 uIU/mL (0.47-4.68)
[2018-10-22 14:09] LABS: Thyroid Peroxidase Antibodies 2 IU/mL (< 9)
== END ==
PROVIDERS: Family Provider Family Medicine; PCP Family Medicine; Visit Provider Family Medicine
DX: E03.9 Hypothyroidism, unspecified (principal)
CPT/HCPCS: 36415; 84439; 84443; 84481; 86376

== ENCOUNTER → 2019-04-07 11:46 | Outpatient (CLI) | payer MEDICARE, OTHER, SELFPAY ==
[2019-04-07 13:02] LABS: Thyroid Stimulating Hormone 3.02 uIU/mL (0.47-4.68)
== END ==
PROVIDERS: Family Provider Family Medicine; PCP Family Medicine; Visit Provider Nurse Practitioner
DX: R00.0 Tachycardia, unspecified (principal)
CPT/HCPCS: 36415; 84443

== ENCOUNTER → 2019-04-21 13:27 | Outpatient (CLI) | payer MEDICARE, OTHER, SELFPAY ==
--- NOTE | 2019-04-21 13:29 | DI.ECHO.S_ITS ---
[facility]---------[facility] +---------+ : : [address] : : : : [id number] : : : : Phone: [phone]+ Echocardiogram Report + + :Name: CORTNEY SARGENT Study Date: 04/21/2019 Height: 66 in : :[facility] Exam Location: IS Weight: 190 lb : : Gender: Female BSA: 2.0 m2 : :: 1955 Age: 64 yrs BP: 110/72 mmHg: :Reason For Study: TACHYCARDIA AND DIZZINESS : : Performed By: Bulmaro Sawyer : :Referring: BRYSON BULLOCK : + + Interpretation Summary 1) Normal left ventricular thickness, size, wall motion, and systolic function (EF 60-65%). 2) Normal right ventricular size and function. 3) No significant valvular abnormalities. 4) A patent foramen ovale is present on doppler assessment. 5) No prior Echo available for comparison. Procedure: A two-dimensional transthoracic echocardiogram with color flow and Doppler was performed. The study quality was technically adequate. There is no prior echocardiogram noted for this patient. The patient was in normal sinus rhythm during the exam. Left Ventricle: The left ventricle is normal in size. There is normal left ventricular wall thickness. The ejection fraction is estimated to be 60-65%. There are no focal wall motion abnormalities. Right Ventricle: The right ventricle is normal in size and function. Atria: Both atria are normal in size. A patent foramen ovale is present. Mitral Valve: The mitral valve is normal in structure and function. There is trace mitral regurgitation. Aortic Valve: The aortic valve is normal in structure and function. The aortic valve is trileaflet. The aortic valve opens well. There is no aortic valve stenosis. No aortic regurgitation is present. Tricuspid Valve: The tricuspid valve is normal in structure and function. There is trace tricuspid regurgitation. The right ventricular systolic pressure is estimated to be at least 19 mmHg based on an estimated right atrial pressure of 3 mm Hg. Pulmonic Valve: The pulmonic valve is normal in structure and function. There is trace pulmonic regurgitation. Great Vessels: The aortic root is normal size. The dimensions of the ascending aorta are normal. The pulmonary artery is normal size. The IVC is of normal diameter and collapses greater than 50% with a sniff. This suggests a low right atrial pressure of 3 mm Hg. Pericardium/ Pleura There is no pericardial effusion. There is no pleural effusion. MMode/2D Measurements & Calculations LVIDd: 4.3 cm LVOT diam: 2.2 cm LVIDs: 1.8 cm Ao root diam: 2.7 cm FS: 56.8 % Aortic Jxn: 2.5 cm EPSS: 0.13 cm asc Aorta Diam: 3.2 cm IVSd: 1.0 cm Ao Arch Diam (Prox Trans): 2.5 cm LVPWd: 1.1 cm LV gannon. diameter/BSA (cm/m^2): 2.2 LV sys. diameter/BSA (cm/m^2): 0.94 LA dimension: 3.9 cm RA long axis: 4.9 cm LA A2 area: 21.0 cm2 RA area: 13.0 cm2 LA A4 area: 20.3 cm2 RA vol: 29.3 ml LA length (vol): 6.0 cm RA : 15.0 ml/m2 LA vol: 59.7 ml IVC diam: 1.7 cm LA vol index: 30.5 ml/m2 Doppler Measurements & Calculations Ao V2 max: 154.8 cm/sec LVOT Max Darius: 133.4 cm/sec Ao V2 mean: 112.8 cm/sec LV V1 max P.1 mmHg Ao max P.6 mmHg LV V1 VTI: 33.5 cm Ao mean P.7 mmHg JORGE(I,D): 3.7 cm2 Ao V2 VTI: 35.9 cm JORGE(V,D): 3.4 cm2 sev ratio: 0.93 JORGE indexed to BSA (cm^2/m^2): 1.9 MV E max darius: 67.9 cm/sec TR max darius: 200.7 cm/sec MV A max darius: 84.6 cm/sec TR max P.1 mmHg MV E/A: 0.80 PA V2 max: 74.4 cm/sec Med Peak E' Darius: 4.3 cm/sec PA V2 mean: 56.5 cm/sec E/E' med: 15.7 PA mean P.4 mmHg Lat Peak E' Darius: 4.9 cm/sec PA pr(Accel): 22.4 mmHg E/E' lat: 14.0 PA Accel Time: 0.16 sec E/e' average: 14.8 MV dec time: 0.28 sec SV(LVOT): 133.3 ml Reading Physician:03:56 PM
== END ==
PROVIDERS: Family Provider Family Medicine; PCP Family Medicine; Visit Provider Nurse Practitioner
DX: R00.0 Tachycardia, unspecified (principal); R42 Dizziness and giddiness
CPT/HCPCS: C8929

== ENCOUNTER → 2019-04-22 10:40 | Outpatient (CLI) | payer MEDICARE, OTHER, SELFPAY ==
--- NOTE | 2019-05-12 08:36 | PM.CARDMON.1 ---
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 No evidence of any significant tachycardia of any sort identified
== END ==
PROVIDERS: Family Provider Family Medicine; PCP Family Medicine; Visit Provider Nurse Practitioner
DX: R00.0 Tachycardia, unspecified (principal); R42 Dizziness and giddiness
CPT/HCPCS: 0296T; 0298T

== ENCOUNTER → 2019-05-16 07:59 | Outpatient (CLI) | payer MEDICARE, OTHER, SELFPAY ==
--- NOTE | 2019-05-16 | DI.MG.S_ITS ---
BILATERAL DIGITAL SCREENING MAMMOGRAM 3D/2D WITH CAD: 05/16/2019 CLINICAL: Routine screening. Comparison is made to exams dated: 05/15/2018 mammogram - [facility], 09/10/2015 mammogram, and 06/26/2014 mammogram - [facility]. The tissue of both breasts is heterogeneously dense. This may lower the sensitivity of mammography. Current study was also evaluated with a Computer Aided Detection (CAD) system. No significant masses, calcifications, or other findings are seen in either breast. There has been no significant interval change. IMPRESSION: NEGATIVE There is no mammographic evidence of malignancy. A 1 year screening mammogram is recommended. This exam was interpreted at Station ID: [id number]. NOTE: For mammograms, a report in lay terms will be sent to the patient. Approximately 15% of breast malignancies will not be visualized mammographically. In the management of a palpable breast mass, a negative mammogram must not discourage biopsy of a clinically suspicious lesion. Electronically Signed By: Randall benjamin/grisel:05/18/2019 08:08:26 letter sent: Normal Exam ACR BI-RADS Category 1: Negative 3341F
== END ==
PROVIDERS: Family Provider Family Medicine; PCP Family Medicine; Visit Provider Family Medicine
DX: Z12.31 Encounter for screening mammogram for malignant neoplasm of breast (principal)
CPT/HCPCS: 77063; 77067

== ENCOUNTER → 2019-06-01 07:53 | Outpatient (CLI) | payer MEDICARE, OTHER, SELFPAY ==
--- NOTE | 2019-06-01 09:18 | PM.TREADMILL ---
Cardiac Stress Test Report Referral & Results Date Patient Seen: 06/01/19 Requesting provider: Bere Villalobos Indication: Dizziness Rest ECG: Unremarkable Procedure Note: Today following both written and verbal informed consent, the patient was exercised according to a standard [place] protocol. The patient exercised for a total of 7 minutes 30 seconds achieving a maximum heart rate of 161. Patient's maximum systolic blood pressure was 188. This was an estimated 10.1 MET's. There are no ST-T segment changes Normal heart rate and blood pressure response to exercise Occasional to rare apparently conducted sinus beats were noted Functional aerobic impairment rates-15% on the active scale or 15% better than average Impression: No evidence of ischemia based on usually ECG criteria Better than average exercise capacity Oxygen saturation was 94% at peak exercise which is considered normal Please note: Actual ECG tracings can be found in the PACS system.
== END ==
PROVIDERS: Family Provider Family Medicine; PCP Family Medicine; Visit Provider Nurse Practitioner
DX: R00.0 Tachycardia, unspecified (principal); R42 Dizziness and giddiness
CPT/HCPCS: 93016; 93017; 93018

== ENCOUNTER → 2019-06-18 07:30 | Outpatient (CLI) | payer MEDICARE, OTHER, SELFPAY ==
[2019-06-18 08:15] LABS: Add Manual Diff / Slide Review NO; Basophils Absolute Auto 0 /uL (0-100); Basophils Percent Auto 0.3 % (0-2); Eosinophils Absolute Auto 100 /uL (0-450); Eosinophils Percent Auto 2.2 % (2-4); Hematocrit 39.9 % (36-46); Hemoglobin 13.4 g/dL (12.0-16.0); Lymphocytes Absolute Auto 1700 /uL (1100-4500); Lymphocytes Percent Auto 26.5 % (25-40); Mean Corpuscular HGB Conc 33.5 % (30-36); Mean Corpuscular Hemoglobin 31.2 PG (26-34); Mean Corpuscular Volume 93.1 fL (80-100); Monocytes Absolute Auto 300 /uL (0-900); Monocytes Percent Auto 5.1 % (3-14); Neutrophils Absolute Auto 4100 /uL (1500-7000); Neutrophils Percent Auto 65.9 % (50-75); Platelet Count 210 X10^3/uL (150-400); Red Blood Cell Count 4.29 X10^6/uL (4.0-5.2); Red Cell Distribution Width 12.6 % (11.6-14.8); White Blood Cell Count 6.3 X10^3/uL (4.5-11.0)
[2019-06-18 08:37] LABS: Alanine Aminotransferase 34 IU/L (9-52); Albumin 3.9 g/dL (3.5-5.0); Albumin Globulin Ratio 1.4 (1.0-2.8); Alkaline Phosphatase 93 U/L (38-126); Aspartate Aminotransferase 29 IU/L (14-36); Bilirubin Total 0.5 mg/dL (0.2-1.3); Blood Urea Nitrogen 21 mg/dL (7-17); Carbon Dioxide 30 mmol/L (22-32); Chloride 106 mmol/L (98-107); Cholesterol 149 mg/dL (140-199); Estimated Glomerular Filt Rate > 60.0 mL/min (>60); Globulin 2.7 g/dL (1.7-4.1); Glucose 114 mg/dL (80-110); HDL Cholesterol 40 mg/dL (40-60); HEMOLYSIS < 15 (0-50); LDL Cholesterol Calculated 88 mg/dL (<100); Potassium 3.9 mmol/L (3.4-5.1); Sodium 140 mmol/L (137-145); Total Protein 6.6 g/dL (6.3-8.2); Triglycerides 106 mg/dL (35-150)
== END ==
PROVIDERS: PCP Family Medicine; Visit Provider Internal Medicine Cardiovascular Disease
DX: R00.2 Palpitations (principal); Z13.220 Encounter for screening for lipoid disorders
CPT/HCPCS: 36415; 80053; 80061; 85025

== ENCOUNTER → 2019-06-19 10:23 | Outpatient (CLI) | payer MEDICARE, OTHER, SELFPAY ==
[2019-06-25 18:41] LABS: Creatinine, 24 Urine 0.99 g/24 h (0.50-2.15); Total Catecholamines 28 mcg/24 h (26-121); Total Volume: 1400 mL
== END ==
PROVIDERS: PCP Family Medicine; Visit Provider Internal Medicine Cardiovascular Disease
DX: R00.2 Palpitations (principal)
CPT/HCPCS: 82384

== ENCOUNTER → 2020-05-17 15:57 | Outpatient (CLI) | payer MEDICARE, OTHER, SELFPAY ==
--- NOTE | 2020-05-17 16:00 | DI.MG.S_ITS ---
BILATERAL DIGITAL SCREENING MAMMOGRAM 3D/2D WITH CAD: 05/17/2020 CLINICAL: Routine screening. Comparison is made to exams dated: 05/16/2019 mammogram, 05/15/2018 mammogram - [facility], and 09/10/2015 mammogram - [facility]. The tissue of both breasts is heterogeneously dense. This may lower the sensitivity of mammography. Current study was also evaluated with a Computer Aided Detection (CAD) system. No significant masses, calcifications, or other findings are seen in either breast. There has been no significant interval change. IMPRESSION: NEGATIVE There is no mammographic evidence of malignancy. A 1 year screening mammogram is recommended. This exam was interpreted at Station ID: [id number]. NOTE: For mammograms, a report in lay terms will be sent to the patient. Approximately 15% of breast malignancies will not be visualized mammographically. In the management of a palpable breast mass, a negative mammogram must not discourage biopsy of a clinically suspicious lesion. Electronically Signed By: Jhoan hurtado/grisel:05/17/2020 16:52:34 letter sent: Normal Exam ACR BI-RADS Category 1: Negative 3341F
== END ==
PROVIDERS: PCP Family Medicine; Referring Provider Family Medicine; Visit Provider Family Medicine
DX: Z12.31 Encounter for screening mammogram for malignant neoplasm of breast (principal)
CPT/HCPCS: 77063; 77067

== ENCOUNTER → 2020-07-05 08:42 | Outpatient (CLI) | payer MEDICARE, OTHER, SELFPAY ==
[2020-07-05 09:42] LABS: Hemoglobin A1C% w Est Avg Glu 5.9 % (4.0-6.0)
[2020-07-05 09:43] LABS: Alanine Aminotransferase 36 IU/L (<35); Albumin Globulin Ratio 1.7 (1.0-2.8); Alkaline Phosphatase 104 U/L (38-126); Aspartate Aminotransferase 33 IU/L (14-36); BUN Creatinine Ratio 22.5 (6-22); Bilirubin Total 0.7 mg/dL (0.2-1.3); Blood Urea Nitrogen 16 mg/dL (7-17); Carbon Dioxide 30 mmol/L (22-32); Chloride 107 mmol/L (98-107); Cholesterol 151 mg/dL (140-199); Estimated Glomerular Filt Rate > 60.0 mL/min (>60); Globulin 2.3 g/dL (1.7-4.1); Glucose 100 mg/dL (80-110); HDL Cholesterol 50 mg/dL (40-60); HEMOLYSIS < 15 (0-50); LDL Cholesterol Calculated 69 mg/dL (<100); Potassium 4.7 mmol/L (3.4-5.1); Sodium 140 mmol/L (137-145); Total Protein 6.3 g/dL (6.3-8.2); Triglycerides 158 mg/dL (35-150)
[2020-07-05 10:11] LABS: Thyroid Stimulating Hormone 4.42 uIU/mL (0.47-4.68)
== END ==
PROVIDERS: PCP Family Medicine; Referring Provider Family Medicine; Visit Provider Family Medicine
DX: R73.03 Prediabetes (principal); E78.5 Hyperlipidemia, unspecified; E03.9 Hypothyroidism, unspecified
CPT/HCPCS: 36415; 80053; 80061; 83036; 84443

== ENCOUNTER → 2021-05-25 10:06 | Outpatient (CLI) | payer MEDICARE, OTHER, SELFPAY ==
--- NOTE | 2021-05-25 | DI.MG.S_ITS ---
BILATERAL DIGITAL SCREENING MAMMOGRAM 3D/2D WITH CAD: 05/25/2021 CLINICAL: Routine screening. Comparison is made to exams dated: 05/17/2020 mammogram, 05/16/2019 mammogram, 05/15/2018 mammogram - [facility], 09/10/2015 mammogram, and 06/26/2014 mammogram - [facility]. The tissue of both breasts is heterogeneously dense. This may lower the sensitivity of mammography. Current study was also evaluated with a Computer Aided Detection (CAD) system. No significant masses, calcifications, or other findings are seen in either breast. There has been no significant interval change. IMPRESSION: NEGATIVE There is no mammographic evidence of malignancy. A 1 year screening mammogram is recommended. This exam was interpreted at Station ID: [id number]. NOTE: For mammograms, a report in lay terms will be sent to the patient. Approximately 15% of breast malignancies will not be visualized mammographically. In the management of a palpable breast mass, a negative mammogram must not discourage biopsy of a clinically suspicious lesion. Electronically Signed By: Kari zarate/grisel:05/25/2021 10:56:13 letter sent: Normal Exam ACR BI-RADS Category 1: Negative 3341F
== END ==
PROVIDERS: PCP Family Medicine; Referring Provider Family Medicine; Visit Provider Family Medicine
DX: Z12.31 Encounter for screening mammogram for malignant neoplasm of breast (principal)
CPT/HCPCS: 77063; 77067

== ENCOUNTER → 2021-06-02 08:30 | Outpatient (CLI) | payer MEDICARE, OTHER, SELFPAY | PROVIDERS: PCP Family Medicine; Referring Provider Physician Assistant Medical; Visit Provider Physician Assistant Medical | DX: L30.9 Dermatitis, unspecified (principal) | CPT/HCPCS: 36415; 86060 ==

== ENCOUNTER → 2021-07-17 07:47 | Outpatient (CLI) | payer MEDICARE, OTHER, SELFPAY ==
[2021-07-17 08:23] LABS: Add Manual Diff / Slide Review NO; Basophils Absolute Auto 0 /uL (0-100); Basophils Percent Auto 0.3 % (0-2); Eosinophils Absolute Auto 100 /uL (0-450); Eosinophils Percent Auto 1.5 % (2-4); Hematocrit 40.6 % (36-46); Hemoglobin 13.8 g/dL (12.0-16.0); Lymphocytes Absolute Auto 1700 /uL (1100-4500); Lymphocytes Percent Auto 28.5 % (25-40); Mean Corpuscular HGB Conc 33.9 % (30-36); Mean Corpuscular Hemoglobin 31.6 PG (26-34); Mean Corpuscular Volume 93.2 fL (80-100); Monocytes Absolute Auto 300 /uL (0-900); Monocytes Percent Auto 5.7 % (3-14); Neutrophils Absolute Auto 3800 /uL (1500-7000); Platelet Count 202 X10^3/uL (150-400); Red Blood Cell Count 4.36 X10^6/uL (4.0-5.2); Red Cell Distribution Width 12.8 % (11.6-14.8)
[2021-07-17 08:46] LABS: Alanine Aminotransferase 41 IU/L (<35); Albumin 4.2 g/dL (3.5-5.0); Albumin Globulin Ratio 1.6 (1.0-2.8); Alkaline Phosphatase 100 U/L (38-126); Aspartate Aminotransferase 41 IU/L (14-36); BUN Creatinine Ratio 26.6 (6-22); Bilirubin Total 0.5 mg/dL (0.2-1.3); Blood Urea Nitrogen 17 mg/dL (7-17); Calcium 9.1 mg/dL (8.4-10.2); Carbon Dioxide 29 mmol/L (22-32); Chloride 106 mmol/L (98-107); Cholesterol 171 mg/dL (140-199); Estimated Glomerular Filt Rate > 60.0 mL/min (>60); Globulin 2.7 g/dL (1.7-4.1); Glucose 117 mg/dL (80-110); HDL Cholesterol 46 mg/dL (40-60); HEMOLYSIS < 15 (0-50); LDL Cholesterol Calculated 94 mg/dL (<100); Potassium 4.7 mmol/L (3.4-5.1); Sodium 141 mmol/L (137-145); Total Protein 6.9 g/dL (6.3-8.2); Triglycerides 155 mg/dL (35-150)
[2021-07-17 09:14] LABS: TSH w/ Reflex to FT4 4.95 uIU/mL (0.47-4.68)
[2021-07-17 09:51] LABS: Free T4, Direct Thyroxine 0.85 ng/dL (0.78-2.19)
[2021-07-17 11:16] LABS: Hemoglobin A1C% w Est Avg Glu 5.9 % (4.0-6.0)
== END ==
PROVIDERS: PCP Family Medicine; Referring Provider Family Medicine; Visit Provider Family Medicine
DX: E03.9 Hypothyroidism, unspecified (principal); E78.5 Hyperlipidemia, unspecified; R73.09 Other abnormal glucose
CPT/HCPCS: 36415; 80053; 80061; 83036; 84439; 84443; 85025

== ENCOUNTER → 2021-07-26 08:23 | Outpatient (CLI) | payer MEDICARE, OTHER, SELFPAY ==
[2021-07-26 11:55] LABS: COVID19 -Nasal RAPID Negative (Negative)
== END ==
PROVIDERS: PCP Family Medicine; Visit Provider Physician Assistant
DX: Z20.822 Contact with and (suspected) exposure to COVID-19 (principal)
CPT/HCPCS: 87635; C9803

== ENCOUNTER 2021-07-28 08:42 | Day surgery (SDC) | payer MEDICARE, OTHER, SELFPAY ==
[2021-07-25 15:17] VITALS: BMI 33.2
[2021-07-28] VITALS (8 sets, daily range): BP systolic 108–128; BP diastolic 51–78; PULSE 54–63; RESP 12–16; TEMP 36.1–36.7; O2SAT 79–98; BMI 33.2
[2021-07-28] MEDS: LACTATED RINGERS 1,000 ML 100 ML IV ×2 (09:20→11:59)
--- NOTE | 2021-07-28 09:48 | PM.PREOP ---
Pre-operative Note COVID-19 COVID-19 status: Negative Result date/Date tested (Pos, Neg/Pending): 07/26/21 Interval Note History & Physical reviewed/Exam performed by Physician: Yes Changes to H&P: No
--- NOTE | 2021-07-28 09:49 | P.OP_ITS ---
Operative Date/Time/Diagnoses Date of procedure: 07/28/21 Time of procedure: 09:49 Pre-op diagnosis: Left foot painful bunion Post-op diagnosis: same Procedure & Clinicians Procedure: Left foot bunionectomy, first metatarsocuneiform arthrodesis, hallux phalangeal osteotomy Same procedure as scheduled: Yes Indications: Painful bunion of the left foot. Conservative measures have failed to alleviate her pain and she wished to have surgical intervention at this time. We spoke of the risks, potential complications, and expected outcomes. Consent was signed, no contraindication to the procedure at this time Surgeon: Anny Aragon Click Yes if Unassisted: Yes Anesthesia Type: General Operative Notes Closure Type: primary Specimen(s): none sent Prosthetic devices, grafts, tissues, transplants, or devices: [place] Lapidus plate, 4.0 cannulated screw, 3.5 locking/non-locking x4 screws, Jaws Nitinol staple x2 Estimated Blood Loss (mL): 50 Blood products transfused: none Tourniquet time (min): 60 Procedure in detail: The patient was brought to the operating room and placed on the operating table in the supine position. The tourniquet was placed about the left thigh. Well padded, appropriately aligned. After induction of general anesthesia the left foot and ankle were prepped and draped in the usual aseptic manner. The tourniquet was inflated. Incision was made over the left 1st metatarsal cuneiform joint extending to the 1st metatarsophalangeal joint. The incision was deepened through subcutaneous tissues being careful to identify and retract all vital neurovascular structures. All bleeders were cauterized and ligated as necessary. A capsulotomy was performed to the 1st MTPJ exposing the enlarged medial eminence. The saw was used to resect the medial eminence. Attention was then directed to the 1st metatarsocuneiform joint which was entered. On the medial aspect of the joint there appeared to be a pocket of viscous, clear fluid consistent with an underlying ganglion cyst. Dorsally the joint also appeared to be a little prominent and the ligament thickened and as it was dissected, I noted the bone to be a little softer dorsally, consistent with other signs of pressure on the area chronically. Underlying bone was firm. The joint was taken down and a saw was used to resect the base of the 1st metatarsal and the distal leading edge of the medial cuneiform. This was done at a slight angle on the medial cuneiform to allow for closure of the intermetatarsal angle. The first metatarsal was fairly bowed internally. It was found that the edge of the 1st metatarsal base laterally was too prominent to allow for full closure so the proximal lateral edge of the 1st metatarsal was also resected. The area was then able to be closed and the alignment was good. A small k-wire was used to fenestrate either side of the former MC joint and fish scaling was also used. The area was irrigated with copious amounts normal sterile saline. With the aid of C-arm the guidewire was placed for temporary fixation through the 1st metatarsocuneiform joint. I was able to translate the 1st metatarsal slightly medially and plantarly to allow for better correction. It was noted to make sure that there was not a significant amount of plantar flexion distally. Next the plate was trialed and using the guide the lag screw was placed from distal lateral to proximal medial. The fusion site showed good compression and closure. The plate was then attached with the corresponding screws in the normal AO technique. This was reviewed on C-arm and noted to be strong and in appropriate alignment. Once this was loaded it would appear that there was still an internal bowing of the proximal phalanx and drift of the hallux, so a closing wedge phalangeal osteotomy was decided to be performed. Next, attention was directed to the proximal phalanx of the hallux where after reviewing the margins of bone and its articulation with the metatarsal head, approximately 1 cm from the proximal cartilaginous surface a bone cut was made. A 2nd bone cut was made just distal to this keeping the lateral cortex intact. As the bone wedge was removed the angle was gently closed down medially. The area was irrigated with normal saline. Measurements were taken and following the standard technique after drilling, a staple was placed along the medial dorsal aspect of the osteotomy which was strong and closed down the osteotomy well. A 2nd staple in the same manner was placed on the dorsal lateral aspect of the osteotomy, again showing good strength and stability and closing down the osteotomy well. The foot was loaded and the 1st ray was shown to be in good alignment. Final images were checked and reviewed and printed on C-arm. After reviewing final images the decision was made upon loading the foot that a 2nd ray procedure was not necessary at this time. Once again after irrigation the medial 1st MTP capsule was repaired in alignment with Vicryl. The tourniquet was deflated and a prompt hyperemic response was seen in the foot. Deep and subcutaneous closure was closed with Vicryl and nylon to the skin. The foot was dressed with a lightly compressive sterile dressing. She was then placed in a postoperative shoe and transferred to PACU with vital signs stable. Post-operative Condition: stable Disposition: PACU Plan for aftercare: Following a period of postoperative monitoring the patient will be discharged to home on written and oral postoperative instructions including keeping the dressing dry and intact, nonweightbearing to the surgical foot, icing and elevating the foot when seated at home. DVT prevention techniques have been reviewed. X-rays to be taken approximately status post 4 weeks.
[2021-07-28] MEDS: CEFAZOLIN 1 GM VIAL 2 GM IV (10:19)
--- NOTE | 2021-07-28 10:36 | SUR.OPER ---
Supine on padded OR bed, head on pillow, arms secured on padded arm boards at <90 degrees abduction, left leg prepped and draped in sterile field, right leg , safety belt at abdomen, tape over blanket over right lower leg.
[2021-07-28] MEDS: BUPIVACAINE 0.5% (PF) VIAL 30 ML INJ (10:49)
--- NOTE | 2021-07-28 13:20 | SUR.PHASEI ---
Received to PACU after general anesthesia. Airway patent, self maintained. Report from Dr Raines and ELLIOT Lazo. O2 sats high 70's to low 80's. O2 per NC titrated up to 4LNC.
[2021-07-28] MEDS: HYDROCODONE/ACET 5/325 TABLET 1 TAB PO (13:50)
[2021-07-28] MEDS: ACETAMINOPHEN 325 MG TABLET 650 MG PO (13:50)
== END 2021-07-28 14:31 | disposition home or self-care (01) ==
PROVIDERS: PCP Family Medicine; Referring Provider Podiatrist; Visit Provider Podiatrist
PROC: 0QBP0ZZ Excision of Left Metatarsal, Open Approach (ICD-10-PCS; CPT 28292; principal; 2021-07-28 09:45)
DX: M20.12 Hallux valgus (acquired), left foot (principal); M21.612 Bunion of left foot; M20.42 Other hammer toe(s) (acquired), left foot; M79.672 Pain in left foot
CPT/HCPCS: 28297; 28298; J0690; J1100; J2405; J2704; J3010

== ENCOUNTER → 2021-11-21 09:30 | Outpatient (CLI) | payer MEDICARE, OTHER, SELFPAY ==
[2021-11-21 11:07] LABS: Alanine Aminotransferase 32 IU/L (<35); Albumin 4.1 g/dL (3.5-5.0); Albumin Globulin Ratio 1.7 (1.0-2.8); Alkaline Phosphatase 127 U/L (38-126); Aspartate Aminotransferase 31 IU/L (14-36); BUN Creatinine Ratio 24.6 (6-22); Bilirubin Total 0.7 mg/dL (0.2-1.3); Blood Urea Nitrogen 17 mg/dL (7-17); Calcium 9.4 mg/dL (8.4-10.2); Carbon Dioxide 28 mmol/L (22-32); Chloride 106 mmol/L (98-107); Estimated Glomerular Filt Rate > 60.0 mL/min (>60); Globulin 2.4 g/dL (1.7-4.1); Glucose 108 mg/dL (80-110); HEMOLYSIS < 15 (0-50); Potassium 4.1 mmol/L (3.4-5.1); Sodium 139 mmol/L (137-145); Total Protein 6.5 g/dL (6.3-8.2)
[2021-11-21 11:40] LABS: Thyroid Stimulating Hormone 3.65 uIU/mL (0.47-4.68)
== END ==
PROVIDERS: PCP Family Medicine; Referring Provider Family Medicine; Visit Provider Family Medicine
DX: E03.9 Hypothyroidism, unspecified (principal); R74.8 Abnormal levels of other serum enzymes
CPT/HCPCS: 36415; 80053; 84443

== ENCOUNTER → 2022-01-15 12:32 | Outpatient (CLI) | payer MEDICARE, OTHER, SELFPAY ==
--- NOTE | 2022-01-15 | DI.CT.S_ITS ---
PROCEDURE: CT LE LT W CON INDICATIONS: Pseudarthrosis after fusion or arthrodesis TECHNIQUE: Noncontrast 1-1.5 mm axial sections acquired from above the tibiotalar joint to the bottom of the calcaneus, with coronal and sagittal reformats. COMPARISON: [facility], CR, XR FOOT 3+ VIEWS LEFT, 11/27/2021, 8:05. FINDINGS: Image quality: Excellent. Bones: No acute, displaced fracture or dislocation. Redemonstrated hardware traversing the 1st tarsometatarsal articulation with persistent joint space. New line osteotomy of the 1st proximal phalanx. Evidence of bunionectomy residual hallux valgus. Bipartite medial hallux sesamoid with hallux sesamoid osteophytosis. Flattening of the 2nd metatarsal head, which may reflect [place] infraction. Calcaneal enthesophytes. The remaining visualized osseous structures appear maintained. Soft tissues: Dorsal soft tissue swelling about the midfoot IMPRESSION: Postsurgical changes of the foot as detailed above. Dictated by: Benjy Martin M.D. on 01/15/2022 at 13:49 Approved by: Benjy Martin M.D. on 01/15/2022 at 13:53
== END ==
PROVIDERS: PCP Family Medicine; Referring Provider Podiatrist; Visit Provider Podiatrist
DX: M96.0 Pseudarthrosis after fusion or arthrodesis (principal); M20.12 Hallux valgus (acquired), left foot; M77.32 Calcaneal spur, left foot
CPT/HCPCS: 73700

== ENCOUNTER → 2022-06-15 07:49 | Outpatient (CLI) | payer MEDICARE, OTHER, SELFPAY ==
--- NOTE | 2022-06-15 07:50 | DI.MG.S_ITS ---
BILATERAL DIGITAL SCREENING MAMMOGRAM 3D/2D WITH CAD: 06/15/2022 CLINICAL: Routine screening. Comparison is made to exams dated: 05/25/2021 mammogram, 05/17/2020 mammogram, and 05/16/2019 mammogram - [facility]. The tissue of both breasts is heterogeneously dense. This may lower the sensitivity of mammography. Current study was also evaluated with a Computer Aided Detection (CAD) system. No significant masses, calcifications, or other findings are seen in either breast. There has been no significant interval change. IMPRESSION: NEGATIVE There is no mammographic evidence of malignancy. A 1 year screening mammogram is recommended. Based on the Tyrer Cuzick model (a risk assessment model) the patient's lifetime risk is 5.6% and her 10 year risk is 3.1%. According to the ACR, ACS, and NCCN guidelines, an annual breast MRI exam along with mammogram is recommended if the patient's lifetime risk is 20% or greater. This exam was interpreted at Station ID: [id number]. NOTE: For mammograms, a report in lay terms will be sent to the patient. Approximately 15% of breast malignancies will not be visualized mammographically. In the management of a palpable breast mass, a negative mammogram must not discourage biopsy of a clinically suspicious lesion. Electronically Signed By: Reno mott/grisel:06/15/2022 08:14:23 letter sent: Normal Exam ACR BI-RADS Category 1: Negative 3341F
== END ==
PROVIDERS: PCP Family Medicine; Referring Provider Family Medicine; Visit Provider Family Medicine
DX: Z12.31 Encounter for screening mammogram for malignant neoplasm of breast (principal)
CPT/HCPCS: 77063; 77067

== ENCOUNTER → 2022-09-12 09:56 | Outpatient (CLI) | payer MEDICARE, OTHER, SELFPAY ==
[2022-09-12 10:34] LABS: COVID19 -Nasal RAPID Negative (Negative)
== END ==
PROVIDERS: PCP Family Medicine; Referring Provider Podiatrist; Visit Provider Podiatrist
DX: Z20.822 Contact with and (suspected) exposure to COVID-19 (principal)
CPT/HCPCS: 87635; C9803

== ENCOUNTER 2022-09-14 06:14 | Day surgery (SDC) | payer MEDICARE, OTHER, SELFPAY ==
[2022-09-13 08:29] VITALS: BMI 32.3
[2022-09-14 07:03] VITALS: BP 102/64; PULSE 65; RESP 16; TEMP 36.9; O2SAT 98; BMI 32.3
[2022-09-14] MEDS: LACTATED RINGERS 1,000 ML 42 ML IV ×2 (07:14→10:00)
--- NOTE | 2022-09-14 07:30 | PM.PREOP ---
Pre-operative Note COVID-19 COVID-19 status: Negative Result date/Date tested (Pos, Neg/Pending): 09/12/22 Interval Note History & Physical reviewed/Exam performed by Physician: Yes Changes to H&P: No
--- NOTE | 2022-09-14 07:31 | P.OP_ITS ---
Operative Date/Time/Diagnoses Date of procedure: 09/14/22 Time of procedure: 07:31 Pre-op diagnosis: Left foot nonunion first metatarsocuneiform arthrodesis with pain, mild bunion prominence Post-op diagnosis: same Procedure & Clinicians Procedure: Left first metatarsocuneiform deep hardware removal Left first metatarsocuneiform revision arthrodesis with bone graft Same procedure as scheduled: Yes Indications: 67 yo female with painful swelling to the left midfoot over the area of the original first metatarsocuneiform arthrodesis. Workup suggests nonunion of the joint. Conservative measures have failed to alleviate her pain and symptoms and she wished to have surgical intervention at this time. We spoke of the risks, potential complications, alternatives, and expected outcomes. Consent was signed, no contraindications to the procedure at this time. Surgeon: Anny Aragon Click Yes if Unassisted: Yes Anesthesia Type: General Operative Notes Closure Type: primary Specimen(s): none sent Prosthetic devices, grafts, tissues, transplants, or devices: [place] Lapidus wedge bone graft. [place] V92FC+ Bone Matrix [place] plate, 4.0 x 36mm cannulated screw, 3.5 (4) locking and 3.5 (1) non- locking screws Estimated Blood Loss (mL): 40 Blood products transfused: none Tourniquet time (min): 195 Procedure in detail: Patient was brought to the operating room and placed on the operating table in the supine position. Tourniquet was placed about the left thigh. Local anesthesia was delivered to left foot 1st ray location. After induction of general anesthesia in the foot and ankle were prepped and draped in usual as eptic manner. The tourniquet was inflated. After a check of anesthesia to the foot incision was made over the pre-existing scar over the 1st metatarsal into the metatarsal cuneiform joint. The incision was deepened through subcutaneous tissues being careful to identify and retract all vital neural and vascular structures. All bleeders were cauterized and ligated as necessary. Much scar tissue and hyperostotic bone was noted to the dorsal 1st metatarsocuneiform joint and surrounding area. After gentle reduction of soft and bony scar tissue the plate and corresponding screws were noted. It showed that this had almost sunken in a little into the bone but there was no breakage in the plate. Each of the 4 screws was able to be removed and no breakage in the plate. The cannulated lag screw was under a significant amount of bony overgrowth so this take quite some time to be able to identify and access but it was able to be done and was removed cleanly with each of the screws and the plate without any breakage and removed in completion. Next the saw was used to resect the edges of the prior 1st metatarsocuneiform joint. There was a nationally not a lot of motion but it appeared that more of the nonunion was more plantarly than dorsally. Minimal amount of resection was performed and in addition the former edges were fish-scaled as well as subcortical drilling with a 0.062 K-wire. This was done at an angle to allow for as much angular correction as possible. The area was irrigated with copious amounts of normal sterile saline. The graft was tested and appeared to be cinthya ropriate. Prior to its insertion it was coated with the V 92 FC plus bone matrix. The edges of former joint were also coated with the remainder of the V 92. When this was placed there was still alignment concerns with a desire to further close 1st intermetatarsal angle. A saw was used once again to resect a portion of more lateral edge of the medial cuneiform as well as thin down a little of the graft in that area. Also, I performed further soft tissue dissection at the 1st metatarsophalangeal joint where there was quite a bit of scar tissue. This was released and this showed the ability to have much more motion at the 1st intermetatarsal angle to allow for closure. A guidewire was placed across the joint and upon loading the correction was much improved at the 1st intermetatarsal angle and alignment good. Using standard technique a 4.0 screw, cannulated, was placed after drilling across the dorsal lateral medial cuneiform into the 1st metatarsal base medially. Good alignment and compression with the screw as well as noted on all 3 planes using mini C-arm. Next a graft plate was placed on the dorsal medial aspect of former joint. Care was taken to verify that this was not in the area of the prior screw holes. Using standard AO technique 3.5 locking screws were placed and on the plantar arm a nonlocking screw was placed. This was verified on C-arm and alignment was good. The graft was in place and the 1st and metatarsal angle was closed. There is no motion at the former 1st metatarsocuneiform joint. At this point this was also reviewed to show that no further resection was needed to the distal medial 1st metatarsal head. Normal saline irrigation was performed at this point. The tourniquet was deflated, a prompt hyperemic response was seen to the foot. All bleeders were cauterized and ligated as necessary. Deep and subcutaneous closure was performed with 4-0 Vicryl and nylon was used to close the skin. She was placed in sterile lightly compressive dressing and postoperative boot and transferred the PACU with vital signs stable. Complications: none Post-operative Condition: stable Disposition: PACU Plan for aftercare: Following a period of postoperative monitoring the patient will be discharged h ome on written and oral postop instructions including keeping the dressing dry and intact, nonweightbearing to the foot. Icing and elevating the foot when seated at home. DVT prevention techniques have been reviewed. She has her follow-up with me for dressing change and around the 4th week we will get her 1st set of x-rays.
[2022-09-14] MEDS: CEFAZOLIN 2 GM/100 ML PREMIX 100 ML IV (07:54)
--- NOTE | 2022-09-14 08:18 | SUR.OPER ---
Supine on padded OR bed, head on pillow, arms secured on padded arm boards at <90 degrees abduction, legs uncrossed, safety belt at thigh, tape over blanket over lower right leg. Howard bump under left hip
[2022-09-14] MEDS: BUPIVACAINE 0.25% (PF) VIAL 30 ML INJ (08:29)
[2022-09-14 12:21] VITALS: BP 139/75; PULSE 79; RESP 18; TEMP 37; O2SAT 95
[2022-09-14 12:26] VITALS: BP 140/77; PULSE 74; RESP 15; O2SAT 94
[2022-09-14 12:38] VITALS: BP 147/80; PULSE 74; RESP 16; TEMP 36.8; O2SAT 98
[2022-09-14 12:51] VITALS: BP 133/69; PULSE 70; RESP 16; TEMP 36.2; O2SAT 98
[2022-09-14] MEDS: CEFAZOLIN VIAL 1 GM in SODIUM CHLORIDE 0.9% 100 ML IV (12:58)
[2022-09-14 13:10] VITALS: BP 128/78; PULSE 77; RESP 16; TEMP 36.8; O2SAT 96
== END 2022-09-14 13:19 | disposition home or self-care (01) ==
PROVIDERS: PCP Family Medicine; Referring Provider Podiatrist; Visit Provider Podiatrist
PROC: (CPT 28740; principal; 2022-09-14 07:45)
DX: M96.0 Pseudarthrosis after fusion or arthrodesis (principal); M79.672 Pain in left foot; M20.12 Hallux valgus (acquired), left foot
CPT/HCPCS: 28740; 20680; J0690; J1100; J1885; J2250; J2405; J2704; J3010

== ENCOUNTER → 2023-02-28 07:46 | Outpatient (CLI) | payer MEDICARE, OTHER, SELFPAY ==
[2023-02-28 09:14] LABS: Alanine Aminotransferase 37 IU/L (<35); Albumin Globulin Ratio 1.5 (1.0-2.8); Alkaline Phosphatase 125 U/L (38-126); Aspartate Aminotransferase 32 IU/L (14-36); Bilirubin Total 0.7 mg/dL (0.2-1.3); Blood Urea Nitrogen 22 mg/dL (7-17); Calcium 8.8 mg/dL (8.4-10.2); Carbon Dioxide 27 mmol/L (22-32); Chloride 105 mmol/L (98-107); Cholesterol 159 mg/dL (140-199); Globulin 2.7 g/dL (1.7-4.1); Glucose 113 mg/dL (80-110); HDL Cholesterol 44 mg/dL (40-60); HEMOLYSIS < 15 (0-50); LDL Cholesterol Calculated 88 mg/dL (<100); Potassium 4.3 mmol/L (3.4-5.1); Sodium 139 mmol/L (137-145); Total Protein 6.7 g/dL (6.3-8.2); Triglycerides 135 mg/dL (35-150)
[2023-02-28 09:17] LABS: BUN Creatinine Ratio 36.1 (6-22); Estimated Glomerular Filt Rate > 60 mL/min (>60)
[2023-02-28 10:39] LABS: TSH w/ Reflex to FT4 4.37 uIU/mL (0.47-4.68)
== END ==
PROVIDERS: PCP Family Medicine; Referring Provider Family Medicine; Visit Provider Family Medicine
DX: E03.9 Hypothyroidism, unspecified (principal); E78.5 Hyperlipidemia, unspecified
CPT/HCPCS: 36415; 80053; 80061; 84443

== ENCOUNTER → 2023-05-16 07:11 | Outpatient (CLI) | payer MEDICARE, OTHER, SELFPAY | PROVIDERS: PCP Family Medicine; Referring Provider Family Medicine; Visit Provider Family Medicine | DX: R73.03 Prediabetes (principal) | CPT/HCPCS: 36415; 83036 ==

== ENCOUNTER 2023-07-02 06:55 | Day surgery (SDC) | payer MEDICARE, OTHER, SELFPAY ==
[2023-07-02 07:17] VITALS: BP 127/83; PULSE 68; RESP 16; TEMP 35.9; O2SAT 96; BMI 29.8
[2023-07-02 07:33] VITALS: BMI 29.8
[2023-07-02] MEDS: LACTATED RINGERS 1,000 ML 84 ML IV (07:33)
--- NOTE | 2023-07-02 08:11 | P.HP_ITS ---
History of Present Illness History of Present Illness Date Patient Seen: 07/02/23 Time Patient Seen: 08:11 Chief complaint: [facility] [place] Narrative: 68-year-old woman personal history of colonic polyps here for screening colonoscopy. Last colonoscopy 4-5 years ago. No abdominal concerns today including pain unintentional weight loss blood rectum nausea vomiting. No family history of intestinal malignancy. [facility] Medical History Chicken pox (~1959) CTS (carpal tunnel syndrome) (2016) Depression Eczema Foot pain History of colon polyps Hyperlipidemia Hypothyroidism Measles (~1959) Mumps (~1959) Osteoarthritis PFO (patent foramen ovale) Psoriasis Shoulder pain Surgical History Anesthesia History of bunionectomy of left great toe (07/28/21) History of colonoscopy Status post rotator cuff repair (11/2016) Family History Father Cancer Kidney disease Sister No problems noted. Social History household members: spouse Smoking Status: Never smoker second hand exposure: No alcohol intake: current substance use type: does not use Meds Home Medications and Allergies Home Medications Medication Instructions Recorded Confirmed Type cholecalciferol (vitamin D3) 125 1 unit PO DAILY ##0 02/05/18 07/02/23 History mcg (5,000 unit) capsule multivitamin (Multiple Vitamins 1 tab PO QDAY ##0 02/05/18 07/02/23 History tablet) triamcinolone acetonide 0.1 % 1 applictn topical BID #15 grams 03/06/19 07/02/23 Rx topical ointment ibuprofen 800 mg tablet 800 mg PO Q8H PRN fever or pain 12/09/19 07/02/23 Rx #90 tabs atorvastatin 40 mg tablet See Rx Instructions .Route 10/11/22 07/02/23 Rx .COMPLEX #90 tabs escitalopram oxalate 10 mg tablet See Rx Instructions .Route 10/11/22 07/02/23 Rx .COMPLEX #90 tabs levothyroxine 50 mcg tablet See Rx Instructions .Route 10/11/22 07/02/23 Rx .COMPLEX #90 tabs sodium,potassium,mag sulfates 17.5 See Rx Instructions PO .COMPLEX 05/13/23 07/02/23 Rx gram-3.13 gram-1.6 gram oral soln #354 mL (Suprep Bowel Prep Kit) Allergies Allergy/AdvReac Type Severity Reaction Status Date / Time Sulfa (Sulfonamide Allergy Mild BLISTERS Verified 07/02/23 07:28 Antibiotics) [SULFA (SULFONAMIDE ANTIBIOTICS)] Exam Vital Signs (past 8 hours): - 07/02/23 07:17 Temperature 96.7 F L Pulse Rate 68 Respiratory Rate 16 Blood Pressure 127/83 Pulse Oximetry 96 Oxygen Delivery Method Room Air Oxygen Delivery Method Room Air Narrative Exam Narrative: General adult woman alert oriented no acute distress Abdomen soft nontender nondistended Assessment & Plan Assessment & Plan narrative: The patient requires colorectal screening and colonoscopy is recommended. Technical details were discussed. Risks, benefits, alternatives explained. Risks including but not limited to myocardial infarction, aspiration, bleeding, pain, missed lesion, incomplete examination, need for further radiographic studies, colonic perforation, and need for major abdominal surgery were discussed. All questions were answered to their satisfaction, and they are in agreement with this plan.
--- NOTE | 2023-07-02 08:29 | PM.OP.COLON ---
Operative Date/Time/Diagnoses Date of procedure: 07/02/23 Time of procedure: 08: Pre-op diagnosis: Personal history of polyps Post-op diagnosis: same Procedure & Clinicians Study performed: Colonoscopy Same procedure as scheduled: Yes Indications: Personal history of colon polyp. Colorectal screening. Surgeon: Juan A Zarate Procedure Notes Procedure in detail: The history and physical was performed/updated and the patient is ASA class is 2. The procedure was discussed in detail with the patient. Potential risks complications including infection, bleeding, missed diagnosis, perforation, need for surgery, and were explained. Their questions were answered and informed consent was obtained. Patient was brought to the procedure room and placed standard monitoring equipment. The patient's vital signs were monitored continuously throughout the entire procedure. Prior to starting time-out was performed. The patient was placed in the left lateral recumbent position. Procedural sedation was administered by anesthesia. Examination began with a thorough inspection of the perianal area there was no evidence of fissures, fistulae, external hemorrhoids or cutaneous malignancy. The colonoscopy scope was then placed into the anal canal and was advanced to the cecum, which was identified by the ileocecal valve, the appendiceal orifice and the confluence of the taenia. The scope was then slowly withdrawn examining colon thoroughly in all directions, irrigating it of any residual stool. No masses or polyps. Extensive house diverticulosis The patient tolerated the procedure well. They will be discharged once criteria are met. The prep was of fair quality. The withdrawl time was 7 minutes. Specimen(s): none sent Impression: Diverticulosis Post-procedure Recommendations: High fiber diet Plan for aftercare: No further colonoscopy necessary unless symptomatic Disposition: same day surgery
[2023-07-02 08:30] VITALS: BP 115/76; PULSE 70; RESP 12; TEMP 36.7; O2SAT 91
[2023-07-02 08:35] VITALS: BP 122/68; PULSE 67; RESP 16; O2SAT 92
[2023-07-02 08:40] VITALS: BP 113/88; PULSE 66; RESP 16; O2SAT 96
[2023-07-02 08:56] VITALS: BP 139/76; PULSE 60; RESP 16; TEMP 36.7; O2SAT 96
== END 2023-07-02 09:10 | disposition home or self-care (01) ==
PROVIDERS: PCP Family Medicine; Referring Provider Surgery; Visit Provider Surgery
PROC: 0DJD8ZZ Inspection of Lower Intestinal Tract, Via Natural or Artificial Opening Endoscopic (ICD-10-PCS; CPT 45378; principal; 2023-07-02 08:15)
DX: Z12.11 Encounter for screening for malignant neoplasm of colon (principal); Z86.010 Personal history of colon polyps; K57.30 Diverticulosis of large intestine without perforation or abscess without bleeding
CPT/HCPCS: G0105; J2704

== ENCOUNTER → 2023-12-06 07:48 | Outpatient (CLI) | payer MEDICARE, OTHER, SELFPAY ==
--- NOTE | 2023-12-06 07:50 | DI.MG.S_ITS ---
BILATERAL DIGITAL SCREENING MAMMOGRAM 3D/2D WITH CAD: 12/06/2023 CLINICAL: Routine screening. Comparison is made to exams dated: 06/15/2022 mammogram, 05/25/2021 mammogram, and 05/17/2020 mammogram - [facility]. There are scattered areas of fibroglandular density in both breasts (category b / 25%-50% glandular tissue). Current study was also evaluated with a Computer Aided Detection (CAD) system. No significant masses, calcifications, or other findings are seen in either breast. There has been no significant interval change. IMPRESSION: NEGATIVE There is no mammographic evidence of malignancy. A 1 year screening mammogram is recommended. Based on the Tyrer Cuzick model (a risk assessment model) the patient's lifetime risk is 3.5% and her 10 year risk is 2.0%. According to the ACR, ACS, and NCCN guidelines, an annual breast MRI exam along with mammogram is recommended if the patient's lifetime risk is 20% or greater. This exam was interpreted at Station ID: [id number]. NOTE: For mammograms, a report in lay terms will be sent to the patient. Approximately 15% of breast malignancies will not be visualized mammographically. In the management of a palpable breast mass, a negative mammogram must not discourage biopsy of a clinically suspicious lesion. Electronically Signed By: Jacquie Jeronimo M.D., PH.D ashley/grisel:12/06/2023 23:40:51 letter sent: Normal Exam ACR BI-RADS Category 1: Negative [id number]
== END ==
PROVIDERS: PCP Family Medicine; Referring Provider Family Medicine; Visit Provider Family Medicine
DX: Z12.31 Encounter for screening mammogram for malignant neoplasm of breast (principal); R92.323 Mammographic fibroglandular density, bilateral breasts
CPT/HCPCS: 77063; 77067

== ENCOUNTER → 2024-02-18 12:27 | Outpatient (CLI) | payer MEDICARE, OTHER, SELFPAY ==
--- NOTE | 2024-02-18 12:29 | DI.RAD.S_ITS ---
PROCEDURE: XR HIP W PEL IF DONE RT 2V INDICATIONS: hip pain TECHNIQUE: AP pelvis with lateral view(s) of the right hip(s). COMPARISON: None. FINDINGS: Bones: No fractures or dislocations. Pelvic ring appears intact. No suspicious bony lesions. [id number] hip and sacroiliac joint degeneration bilaterally. Soft tissues: The visualized bowel gas pattern is normal. No suspicious soft tissue calcifications. IMPRESSION: 1. No acute bony abnormality. 2. Mild degenerative joint disease. Dictated by: Allison Willis M.D. on 02/18/2024 at 17:02 Approved by: Allison Willis M.D. on 02/18/2024 at 17:03
== END ==
PROVIDERS: PCP Family Medicine; Referring Provider Family Medicine; Visit Provider Family Medicine
DX: M16.0 Bilateral primary osteoarthritis of hip (principal); M47.898 Other spondylosis, sacral and sacrococcygeal region; M25.559 Pain in unspecified hip
CPT/HCPCS: 73502

== ENCOUNTER → 2024-03-25 07:52 | Outpatient (CLI) | payer MEDICARE, OTHER, SELFPAY ==
--- NOTE | 2024-03-25 07:53 | DI.ECHO.S_ITS ---
[place] [facility] : : [address] : : [place] : : [id number] : : Phone: [phone] Echocardiogram Report + + :Name: CORTNEY SARGENT Study Date: 03/25/2024 Height: 66 in : :[facility] ReadingLocation: Weight: 190 lb : : Gender: Female BSA: 2.0 m2 : :: 1955 Age: 68 yrs BP: 132/80 mmHg: :Reason For Study: LIGHTHEADEDNESS AND PALIPITATIONS : :Ordering Physician: MARK, : :DHARA Performed By: Mary Roberson : :Referring: DHARA FLORES : + + Interpretation Summary Limited Echo: 1) Normal left ventricular thickness, size, wall motion, and systolic function (EF 60-65%). 2) Grossly, normal right ventricular size and function. 3) Compared to the Echo done 04/21/2019, no significant change. Procedure: Images were not obtained from all of the standard acoustic windows due to the limited scope of the study. The study quality was technically adequate. Comparison is made with the echocardiogram of 04/21/2019. The patient was in sinus bradycardia with heart rates between 56- 63 bpm during the exam. Left Ventricle: The left ventricle is normal in size. Proximal septal thickening is noted. The ejection fraction is estimated to be 60-65%. Left ventricular systolic function appears normal without focal wall motion abnormalities. Right Ventricle: The right ventricle grossly appears normal in size with probable normal systolic function. Aortic Valve: The aortic valve is trileaflet. There is no aortic valve stenosis. No aortic regurgitation is present. Great Vessels: The IVC is of normal diameter and collapses greater than 50% with a sniff. This suggests a low right atrial pressure of 3 mm Hg. Pericardium/ Pleura There is no pericardial effusion. There is no pleural effusion. MMode/2D Measurements & Calculations LVIDd: 3.7 cm LVOT diam: 2.0 cm LVIDs: 2.5 cm Ao root diam: 2.9 cm FS: 32.3 % asc Aorta Diam: 3.1 cm IVSd: 1.1 cm LVPWd: 1.2 cm LV gannon. diameter/BSA (cm/m^2): 1.9 LV sys. diameter/BSA (cm/m^2): 1.3 IVC diam: 1.1 cm Doppler Measurements & Calculations Ao V2 max: 160.2 cm/sec LVOT Max Darius: 135.0 cm/sec Ao V2 mean: 123.0 cm/sec LV V1 max P.3 mmHg Ao max P.3 mmHg LV V1 VTI: 31.0 cm Ao mean P.4 mmHg JORGE(I,D): 2.6 cm2 Ao V2 VTI: 38.4 cm JORGE(V,D): 2.7 cm2 sev ratio: 0.81 JORGE indexed to BSA (cm^2/m^2): 1.3 SV(LVOT): 98.6 ml Reading Physician:09:55 AM
== END ==
PROVIDERS: PCP Family Medicine; Referring Provider Family Medicine; Visit Provider Family Medicine
DX: R42 Dizziness and giddiness (principal); R00.2 Palpitations
CPT/HCPCS: 93246; 93307

== ENCOUNTER → 2024-03-25 08:43 | Outpatient (CLI) | payer MEDICARE, OTHER, SELFPAY | PROVIDERS: PCP Family Medicine; Referring Provider Family Medicine; Visit Provider Family Medicine | DX: R00.2 Palpitations (principal) | CPT/HCPCS: 93246 ==

== ENCOUNTER 2024-08-19 13:39 | Emergency (ER) | payer MEDICARE, OTHER, SELFPAY ==
[2024-08-19] VITALS (7 sets, daily range): BP systolic 141; BP diastolic 66; PULSE 60–79; RESP 16–32; TEMP 36.6; O2SAT 95–96; BMI 29.8
--- NOTE | 2024-08-19 13:47 | EKG_ITS ---
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
--- NOTE | 2024-08-19 13:47 | DI.RAD.S_ITS ---
PROCEDURE: XR CHEST 1V INDICATIONS: chest pain TECHNIQUE: One view of the chest was acquired. COMPARISON: None. FINDINGS: Surgical changes and devices: None. Lungs and pleura: Lungs are clear. No pleural effusions or pneumothorax. Mediastinum: Mediastinal contours appear normal. Heart size is normal. Bones and chest wall: No suspicious bony lesions. Overlying soft tissues appear unremarkable. IMPRESSION: No acute cardiopulmonary pathology. Dictated by: Davion Goins M.D. on 08/19/2024 at 13:59 Approved by: Davion Goins M.D. on 08/19/2024 at 13:59
[2024-08-19 13:58] LABS: Add Manual Diff / Slide Review NO; Basophils Absolute Auto 0 /uL (0-100); Basophils Percent Auto 0.2 % (0-2); Eosinophils Absolute Auto 100 /uL (0-450); Eosinophils Percent Auto 1.3 % (2-4); Hematocrit 42.8 % (36-46); Hemoglobin 14.5 g/dL (12.0-16.0); INR 0.9 (0.9-1.3); Lymphocytes Absolute Auto 2100 /uL (1100-4500); Lymphocytes Percent Auto 23.1 % (25-40); Mean Corpuscular HGB Conc 33.8 % (30-36); Mean Corpuscular Hemoglobin 31.2 PG (26-34); Mean Corpuscular Volume 92.2 fL (80-100); Monocytes Absolute Auto 500 /uL (0-900); Monocytes Percent Auto 5.5 % (3-14); Neutrophils Absolute Auto 6400 /uL (1500-7000); Neutrophils Percent Auto 69.9 % (50-75); Platelet Count 279 X10^3/uL (150-400); Prothrombin Time 10.4 SECONDS (9.4-12.5); Red Blood Cell Count 4.64 X10^6/uL (4.0-5.2); Red Cell Distribution Width 12.9 % (11.6-14.8); White Blood Cell Count 9.1 X10^3/uL (4.5-11.0)
[2024-08-19 14:00] LABS: PTT Partial Thromboplastin Tim 35 SECONDS (25.1-36.5)
[2024-08-19 14:02] LABS: Alanine Aminotransferase 36 IU/L (<35); Albumin 4.6 g/dL (3.5-5.0); Albumin Globulin Ratio 1.5 (1.0-2.8); Alkaline Phosphatase 115 U/L (38-126); Aspartate Aminotransferase 36 IU/L (14-36); BUN Creatinine Ratio 27.8 (6-22); Bilirubin Total 0.7 mg/dL (0.2-1.3); Blood Urea Nitrogen 20 mg/dL (7-17); Calcium 9.7 mg/dL (8.4-10.2); Carbon Dioxide 25 mmol/L (22-32); Chloride 104 mmol/L (98-107); Creatine Kinase 85 U/L (30-135); Estimated Glomerular Filt Rate > 60 mL/min (>60); Glucose 137 mg/dL (80-110); HEMOLYSIS < 15 (0-50); Lipase 84 U/L (23-300); Potassium 3.9 mmol/L (3.4-5.1); Sodium 139 mmol/L (137-145); Total Protein 7.6 g/dL (6.3-8.2)
[2024-08-19 14:14] LABS: NT-proBNP (BNP-Adult 18+) < 20 pg/mL (<125); Troponin I < 0.012 ng/mL (0.01-0.034)
--- NOTE | 2024-08-19 15:44 | EKG_ITS ---
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
--- NOTE | 2024-08-19 15:48 | ED.CHESTPAIN ---
HPI - Chest Pain General Chief Complaint: Chest Pain Stated Complaint: Chest pain-some relief with NTG Time Seen by Provider: 08/19/24 15:47 History of Present Illness HPI narrative: Patient is a 69-year-old female with past medical history of hyperlipidemia, hypothyroidism, comes into the ED from home for evaluation of chest tightness states that it started spontaneously at around 1:00 p.m., states that she has been taking penicillin for prophylaxis for root canal in the next several days. States that she did take some aspirin prior to arrival at [facility]. At time of initial evaluation patient without any pain currently. States that all her symptoms have since resolved. No other systemic symptoms at this time Related Data Home Medications Medication Instructions Recorded Confirmed cholecalciferol (vitamin D3) 125 1 unit PO DAILY ##0 02/05/18 03/06/24 mcg (5,000 unit) capsule multivitamin (Multiple Vitamins 1 tab PO QDAY ##0 02/05/18 03/06/24 tablet) Previous Rx's Medication Instructions Recorded triamcinolone acetonide 0.1 % 1 applictn topical BID #15 grams 03/06/19 topical ointment ibuprofen 800 mg tablet 800 mg PO Q8H PRN fever or pain 12/09/19 #90 tabs sodium,potassium,mag sulfates 17.5 See Rx Instructions PO .COMPLEX 05/13/23 gram-3.13 gram-1.6 gram oral soln #354 mL (Suprep Bowel Prep Kit) atorvastatin 40 mg tablet 40 mg PO DAILY #90 tabs 09/30/23 escitalopram oxalate 10 mg tablet 10 mg PO DAILY #90 tabs 09/30/23 levothyroxine 50 mcg tablet 50 mcg PO DAILY #90 tabs 08/19/24 Allergies Allergy/AdvReac Type Severity Reaction Status Date / Time Sulfa (Sulfonamide Allergy Mild BLISTERS Verified 03/06/24 11:48 Antibiotics) [SULFA (SULFONAMIDE ANTIBIOTICS)] Review of Systems Review of Systems Narrative: General: Denies fever, chills, weight loss HEENT: Denies headache, eye drainage, eye irritation, head trauma, sore throat, voice change Cardiovascular: Positive chest pain, denies palpitations, shortness of breath, tachycardia Respiratory: Denies any shortness of breath, cough, wheeze, stridor GI/: Denies any abdominal pain, nausea, vomiting, diarrhea, bright red blood per rectum, melanotic stools, urinary frequency, urinary retention, dysuria, hematuria MSK: Denies any joint pain, muscle pains, swelling Skin: Denies any rashes, lesions, discoloration Neuro: Denies any headache, lightheadedness, dizziness, fainting, weakness Psych: Denies SI/HI Patient History Medical History Chicken pox (~1960) CTS (carpal tunnel syndrome) (2017) Depression Eczema Foot pain History of colon polyps Hyperlipidemia Hypothyroidism Measles (~1960) Mumps (~1959) Osteoarthritis PFO (patent foramen ovale) Psoriasis Shoulder pain Surgical History Anesthesia History of bunionectomy of left great toe (07/28/21) History of colonoscopy Status post rotator cuff repair (11/2016) Family History Father Cancer Kidney disease Sister No problems noted. Social History household members: spouse Smoking Status: Never smoker second hand exposure: No alcohol intake: current substance use type: does not use Smoking Status: Never smoker alcohol intake frequency: holidays/special occasions only Substance Use Type: does not use Exam Narrative Exam Narrative: General: Cooperative, comfortable, well-developed, not in acute distress HEENT: Normocephalic, atraumatic, PERRLA, normal sclera, eyelids normal, Neck: Active full range of motion, atraumatic Chest: Normal to inspection, negative crepitus, no overlying erythema ecchymosis Respiratory: Normal respiratory effort, not in acute respiratory distress, clear to auscultation bilaterally negative cough, wheeze, tachypnea, rhonchi, rales Cardiology: Regular rate rhythm negative gallop, murmur, rubs GI/: Normal to inspection, soft, nonrigid, no tenderness to palpation, exam deferred MSK: Full range of active range of motion of all 4 extremities, atraumatic Skin: No rashes lesions noted Neuro: Alert awake oriented x3, moves all 4 extremities spontaneously, cranial nerves intact, able to answer all questions appropriately follows commands appropriately Psych: Cooperative, negative suicidal or homicidal ideations Initial Vital Signs Initial Vital Signs: Vital Signs Temperature 97.8 F 08/19/24 13:44 Pulse Rate 79 08/19/24 13:44 Respiratory Rate 16 08/19/24 13:44 Blood Pressure 141/66 H 08/19/24 13:44 Pulse Oximetry 95 08/19/24 13:44 Oxygen Delivery Method Room Air 08/19/24 13:44 Scores HEART Score Heart Score history: Slightly Suspicious Heart Score EKG: Normal Heart Score Age: > or = 65 years old Heart Score risk factors: 1-2 risk factors Heart Score troponin: < or = to normal limit Heart Score Total: 3 Course Orders Ordered: ED Orders 08/19/24 13:30 Complete Blood Count AUTO DIFF Stat Comprehensive Metabolic Panel Stat Lipase Stat Magnesium Stat NT-proBNP (BNP-Adult 18+) Stat PTT Partial Thromboplastin Gabriel Stat Prothrombin Time INR Stat Troponin & CK Cardiac Panel Stat 08/19/24 13:45 Trop I [Troponin I] Stat 08/19/24 13:47 XR chest 1V Stat EKG-12 Lead Stat 08/19/24 15:44 EKG-12 Lead Stat Vital Signs Vital signs: Vital Signs - 8 hr 08/19/24 13:44 08/19/24 14:08 08/19/24 14:30 Temperature 97.8 F Pulse Rate 79 72 69 Respiratory Rate 16 32 H Blood Pressure 141/66 H Pulse Oximetry 95 95 96 Oxygen Delivery Method Room Air 08/19/24 15:00 08/19/24 15:30 08/19/24 16:00 Temperature Pulse Rate 62 63 60 Respiratory Rate 23 24 24 Blood Pressure Pulse Oximetry 95 96 95 Oxygen Delivery Method 08/19/24 16:30 Temperature Pulse Rate 61 Respiratory Rate 17 Blood Pressure Pulse Oximetry 96 Oxygen Delivery Method MDM - Chest Pain Differential Diagnosis Differential diagnosis: Likely atypical chest pain, st elevation myocardial infarction, costochondritis, chest pain and other (Electrolyte abnormality) Lab Data 08/19/24 13:30 08/19/24 13:30 Labs: Lab Results 08/19/24 08/19/24 Range/Units 13:30 13:45 WBC 9.1 (4.5-11.0) X10^3/uL RBC 4.64 (4.0-5.2) X10^6/uL Hgb 14.5 (12.0-16.0) g/dL Hct 42.8 (36-46) % MCV 92.2 (80-100) fL MCH 31.2 (26-34) PG MCHC 33.8 (30-36) % RDW 12.9 (11.6-14.8) % Plt Count 279 (150-400) X10^3/uL Neut % (Auto) 69.9 (50-75) % Lymph % (Auto) 23.1 L (25-40) % Ralls % (Auto) 5.5 (3-14) % Eos % (Auto) 1.3 L (2-4) % Baso % (Auto) 0.2 (0-2) % Neut # (Auto) 6400 (2406-4589) /uL Lymph # (Auto) 2100 (1518-9328) /uL Ralls # (Auto) 500 (0-900) /uL Eos # (Auto) 100 (0-450) /uL Baso # (Auto) 0 (0-100) /uL PT 10.4 (9.4-12.5) SECONDS INR 0.9 (0.9-1.3) APTT 35 (25.1-36.5) SECONDS Sodium 139 (137-145) mmol/L Potassium 3.9 (3.4-5.1) mmol/L Chloride 104 (98-107) mmol/L Carbon Dioxide 25 (22-32) mmol/L BUN 20 H (7-17) mg/dL Creatinine 0.72 (0.52-1.04) mg/dL Estimated GFR > 60 (>60) mL/min BUN/Creatinine Ratio 27.8 H (6-22) Glucose 137 H (80-110) mg/dL Calcium 9.7 (8.4-10.2) mg/dL Magnesium 2.0 (1.6-2.3) mg/dL Total Bilirubin 0.7 (0.2-1.3) mg/dL AST 36 (14-36) IU/L ALT 36 H (<35) IU/L Alkaline Phosphatase 115 (38-126) U/L Total Creatine Kinase 85 (30-135) U/L Troponin I < 0.012 < 0.012 (0.01-0.034) ng/mL NT-Pro-B Natriuret Pep < 20 (<125) pg/mL Total Protein 7.6 (6.3-8.2) g/dL Albumin 4.6 (3.5-5.0) g/dL Globulin 3.0 (1.7-4.1) g/dL Albumin/Globulin Ratio 1.5 (1.0-2.8) Lipase 84 (23-300) U/L Imaging Data Chest x-ray: Radiologist's Impression: [address] [address] XRay Report Signed Patient: Corine Cast MR#: [id number] : 1955 Acct:[id number] Age/Sex: 69 / F Date of Service: 08/19/24 Loc: ED Accession Number: [id number] Procedure: XR chest 1V Ordering Provider: Oz Barrios D.O. PROCEDURE: XR CHEST 1V INDICATIONS: chest pain TECHNIQUE: One view of the chest was acquired. COMPARISON: None. FINDINGS: Surgical changes and devices: None. Lungs and pleura: Lungs are clear. No pleural effusions or pneumothorax. Mediastinum: Mediastinal contours appear normal. Heart size is normal. Bones and chest wall: No suspicious bony lesions. Overlying soft tissues appear unremarkable. IMPRESSION: No acute cardiopulmonary pathology. ECG Data Interpretation: Initial EKG 76 left axis deviation QTC 470 no STEMI Repeat EKG sinus bradycardia at 58 QTC 439 left axis deviation no STEMI MDM Narrative Medical decision making narrative: Patient is a 69-year-old female with a history of hyperlipidemia hypothyroidism presents to the emergency department from home via ambulance for evaluation of chest pain started a proximally 1:00 p.m. today, states that she did take aspirin at the behest of medics prior to arrival states that all her symptoms have improved. She describes the pain as a pressure no radiation nothing making it better or worse. Here chest x-ray without any signs of any acute findings, lab work unremarkable, heart score of 3. Patient did have negative troponins x2. Had negative EKG x2. Patient stating that all her symptoms have since resolved. I informed patient that she should follow up with Cardiology and primary care in outpatient setting. She understands and agrees with this plan strict return precautions were given she verbalized understanding of this and agrees to be discharged home with outpatient follow up Discharge Plan Departure Patient Disposition: Home Clinical Impression: Chest pain Activity Restrictions/Additional Instructions: Please follow up with Cardiology and primary care in outpatient setting Please read the discharge instructions sheet carefully and bring all papers to all doctor follow-up visits, as it may contain information that your doctor may want to see. Disease processes change and evolve, if your symptoms worsen or if you develop any new symptoms that are concerning to you please return for evaluation. Your evaluation today does not show any evidence of any life-threatening/serious illnesses requiring admission to the hospital or surgery. Please follow-up with your doctor for re-evaluation in approximately 1 day. Seek immediate medical attention for any worrisome symptoms. Prescriptions: No Action multivitamin [Multiple Vitamins] 1 EACH tablet 1 tab PO QDAY Qty: 0 cholecalciferol (vitamin D3) 5,000 UNIT capsule 1 unit PO DAILY Qty: 0 triamcinolone acetonide 0.1 % ointment 1 applictn Topical BID Qty: 15 1RF ibuprofen 800 mg tablet 800 mg PO Q8H PRN (Reason: fever or pain) Qty: 90 0RF Rx Instructions: Please schedule annual appointment for further refills. sodium,potassium,mag sulfates [Suprep Bowel Prep Kit] 17.5-3.13-1.6 gram recon soln See Rx Instructions PO .COMPLEX Qty: 354 0RF Rx Instructions: take as directed by Physician atorvastatin 40 mg tablet 40 mg PO DAILY Qty: 90 3RF escitalopram oxalate 10 mg tablet 10 mg PO DAILY Qty: 90 3RF levothyroxine 50 mcg tablet 50 mcg PO DAILY Qty: 90 1RF Referrals: Elisabeth Araujo MD [Primary Care Provider] - Stand Alone Forms: Patient Portal/API
[2024-08-19 16:27] LABS: Troponin I < 0.012 ng/mL (0.01-0.034)
== END 2024-08-19 16:48 | disposition home or self-care (01) ==
PROVIDERS: Emergency Provider Student in an Organized Health Care Education/Training Program; PCP Family Medicine
DX: R07.9 Chest pain, unspecified (principal); R00.1 Bradycardia, unspecified
CPT/HCPCS: 36415; 71045; 80053; 82550; 83690; 83735; 83880; 84484; 85025; 85610; 85730; 93005; 99284

== ENCOUNTER → 2024-10-09 07:52 | Outpatient (CLI) | payer MEDICARE, OTHER, SELFPAY ==
--- NOTE | 2024-10-09 07:53 | DI.NM.S_ITS ---
PROCEDURE: NM EXERCISE TREADMILL NON NUC COMPARISON: None INDICATIONS: Chest pain FINDINGS: Rest ECG sinus rhythm 70 bpm. Chepe protocol 8:17, maximum heart rate 154 bpm (103% peak predicted), maximum blood pressure 200/100, 10.1 METS, AKHIL -42%. Exercise ECG sinus tachycardia, no ST segment changes or arrhythmia. The patient did not report exercise-induced chest discomfort. IMPRESSION: Low risk study. No evidence of exercise-induced ischemia or arrhythmia. Hypertensive response. Normal heart rate response. Very good exercise capacity. Dictated by: Tara Jones D.O. on 10/12/2024 at 16:43 Approved by: Tara Jones D.O. on 10/12/2024 at 16:46
== END ==
PROVIDERS: PCP Family Medicine; Referring Provider Family Medicine; Visit Provider Family Medicine
DX: R07.9 Chest pain, unspecified (principal)
CPT/HCPCS: 93017

== ENCOUNTER → 2024-12-22 15:24 | Outpatient (CLI) | payer MEDICARE, OTHER, SELFPAY ==
--- NOTE | 2024-12-22 15:26 | DI.MG.S_ITS ---
BILATERAL DIGITAL SCREENING MAMMOGRAM 3D/2D WITH CAD: 12/22/2024 CLINICAL: Routine screening. Comparison is made to exams dated: 12/06/2023 mammogram, 06/15/2022 mammogram, 05/25/2021 mammogram, 05/17/2020 mammogram, and 05/16/2019 mammogram - [facility]. There are scattered areas of fibroglandular density (category b / 25%-50% glandular tissue). Current study was also evaluated with a Computer Aided Detection (CAD) system. No significant masses, calcifications, or other findings are seen in either breast. There has been no significant interval change. IMPRESSION: NEGATIVE There is no mammographic evidence of malignancy. A 1 year screening mammogram is recommended. Based on the Tyrer Cuzick model (a risk assessment model) the patient's lifetime risk is 3.3% and her 10 year risk is 2.1%. According to the ACR, ACS, and NCCN guidelines, an annual breast MRI exam along with mammogram is recommended if the patient's lifetime risk is 20% or greater. This exam was interpreted at Station ID: [id number]. NOTE: For mammograms, a report in lay terms will be sent to the patient. Approximately 15% of breast malignancies will not be visualized mammographically. In the management of a palpable breast mass, a negative mammogram must not discourage biopsy of a clinically suspicious lesion. Electronically Signed By: Jacquie Jeronimo M.D., Ph.D. ashley/grisel:12/23/2024 22:51:12 letter sent: Normal Exam ACR BI-RADS Category 1: Negative
== END ==
LOC: MAMMO 15:26
PROVIDERS: PCP Family Medicine; Referring Provider Family Medicine; Visit Provider Family Medicine
DX: Z12.31 Encounter for screening mammogram for malignant neoplasm of breast (principal)
CPT/HCPCS: 77063; 77067

== ENCOUNTER → 2024-12-30 10:07 | Outpatient (CLI) | payer MEDICARE, OTHER, SELFPAY ==
[2024-12-30 11:01] LABS: Alanine Aminotransferase 46 IU/L (<35); Albumin 4.6 g/dL (3.5-5.0); Albumin Globulin Ratio 1.7 (1.0-2.8); Alkaline Phosphatase 116 U/L (38-126); Aspartate Aminotransferase 38 IU/L (14-36); BUN Creatinine Ratio 21.6 (6-22); Bilirubin Total 0.7 mg/dL (0.2-1.3); Blood Urea Nitrogen 16 mg/dL (7-17); Calcium 9.3 mg/dL (8.4-10.2); Carbon Dioxide 26 mmol/L (22-32); Chloride 105 mmol/L (98-107); Cholesterol 171 mg/dL (140-199); Estimated Glomerular Filt Rate > 60 mL/min (>60); Globulin 2.7 g/dL (1.7-4.1); Glucose 114 mg/dL (80-110); HDL Cholesterol 45 mg/dL (40-60); HEMOLYSIS < 15 (0-50); LDL Cholesterol Calculated 91 mg/dL (<100); Potassium 4.2 mmol/L (3.4-5.1); Sodium 140 mmol/L (137-145); Total Protein 7.3 g/dL (6.3-8.2); Triglycerides 177 mg/dL (35-150)
[2024-12-30 11:04] LABS: Hemoglobin A1C% w Est Avg Glu 5.8 % (4.0-6.0)
[2024-12-30 11:32] LABS: Thyroid Stimulating Hormone 3.11 uIU/mL (0.47-4.68)
== END ==
LOC: LAB 10:09
PROVIDERS: PCP Family Medicine; Referring Provider Family Medicine; Visit Provider Family Medicine
DX: R73.03 Prediabetes (principal); E78.5 Hyperlipidemia, unspecified; E03.9 Hypothyroidism, unspecified
CPT/HCPCS: 36415; 80053; 80061; 83036; 84443

== ENCOUNTER → 2025-01-22 08:35 | Outpatient (CLI) | payer MEDICARE, OTHER, SELFPAY | PROVIDERS: PCP Family Medicine; Visit Provider Family Medicine | DX: J02.9 Acute pharyngitis, unspecified (principal) | CPT/HCPCS: 87070 ==

== ENCOUNTER → 2025-05-06 16:04 | Outpatient (CLI) | payer MEDICARE, OTHER, SELFPAY ==
--- NOTE | 2025-05-06 16:07 | DI.RAD.S_ITS ---
PROCEDURE: XR HIP W PEL IF DONE BILAT 2V INDICATIONS: bilateral hip pain TECHNIQUE: AP pelvis with lateral view(s) of the bilateral hip(s). COMPARISON: None. FINDINGS: Bones: No fractures or dislocations. Pelvic ring appears intact. No suspicious bony lesions. Mild joint narrowing with periarticular osteophyte formation. Soft tissues: The visualized bowel gas pattern is normal. No suspicious soft tissue calcifications. IMPRESSION: Mild symmetric hip joint degeneration. Dictated by: Josh HENRY Interpreted: Bela Fox MD on 05/08/2025 at 17:19 Transcribed by: KHANG on 05/08/2025 at 17:20 Approved by: Bela Fox M.D. on 05/09/2025 at 14:15
== END ==
PROVIDERS: PCP Family Medicine; Referring Provider Family Medicine; Visit Provider Family Medicine
DX: M16.0 Bilateral primary osteoarthritis of hip (principal); M25.551 Pain in right hip; M25.552 Pain in left hip
CPT/HCPCS: 73521